=== PATIENT | female | born 1945 | race Caucasian/White ===

== ENCOUNTER 2018-08-22 10:51 | Inpatient (IN) | payer OTHER, BC ==
[2018-08-22] MEDS ORDERED: SODIUM CHLORIDE 0.9% 500 ML INFUS.BAG IV ONE (11:10)
--- NOTE | 2018-08-22 11:33 | PDOC ---
History of Present Illness - General Chief Complaint: Pain Stated Complaint: ABD PAIN Time Seen by Provider: 08/22/18 11:02 History Source: Patient, Family Exam Limitations: No Limitations - History of Present Illness Initial Comments: 08/22/18 11:23 CHIEF COMPLAINT: Lower abdominal pain since HISTORY OF PRESENT ILLNESS: 73-year-old female with a history of hypertension, colon resection for diverticulitis, incisional hernia repair in the left lower quadrant of the abdomen, and cholecystectomy. Patient was feeling well until , 3 days ago, when she noted some diffuse abdominal bloating and discomfort with diffuse abdominal tenderness to the touch. She has nausea but no vomiting. She denies fever. She does complain of chills. She has chronic diarrhea, and her bowel movements are unchanged from baseline. She had a bowel movement yesterday which was initially formed and then a little bit loose, which is normal for her. There was no blood in the stool at that time. On she did notice small spot of blood on the toilet tissue, but no blood in the stool. Today she continues to have a sensation of lower abdominal bloating, and left lower quadrant greater than right lower quadrant abdominal discomfort. The pain also radiates from the bilateral back to the lower abdomen. REVIEW OF SYSTEMS: GENERAL/CONSTITUTIONAL: No fever, but positive chills. No weakness. No weight change. HEAD, EYES, EARS, NOSE AND THROAT: No change in vision. No ear pain or discharge. No sore throat. CARDIOVASCULAR: No chest pain or shortness of breath. RESPIRATORY: No cough, wheezing, or hemoptysis. GASTROINTESTINAL: Positive nausea but no vomiting. Positive chronic diarrhea without change. Positive spot of blood on the toilet tissue on , but no bleeding since then. Positive lower abdominal bloating sensation with nausea but no vomiting. No change in chronic diarrhea. GENITOURINARY: No dysuria, frequency, or change in urination. MUSCULOSKELETAL: No joint or muscle swelling or pain. No neck or back pain. SKIN AND BREASTS: No rash or easy bruising. NEUROLOGIC: No headache, vertigo, loss of consciousness, or loss of sensation. PSYCHIATRIC: No depression or anxiety. ENDOCRINE: No increased thirst. No abnormal weight change. HEMATOLOGIC/LYMPHATIC: No anemia, easy bleeding, or history of blood clots. ALLERGIC/IMMUNOLOGIC: No hives or skin allergy. No latex allergy. Past History - Past Medical History Allergies/Adverse Reactions: Allergies Allergy/AdvReac Type Severity Reaction Status Date / Time No Known Allergies Allergy Verified 08/22/18 10:52 Home Medications: Ambulatory Orders Aspirin [Aspir 81] 81 mg PO DAILY 06/13/13 Loperamide HCl/Simethicone [Imodium Multi-Symptom Rel Cplt] 1 each PO ASDIR tablet 10/29/16 Bismuth Subsalicylate [Pepto-Bismol -] 262 mg PO ASDIR 08/22/18 Hydrochlorothiazide [Hctz -] 25 mg PO DAILY 08/22/18 Levothyroxine [Synthroid -] 125 mcg PO DAILY 08/22/18 Metoprolol Succinate 25 mg PO DAILY 08/22/18 Quinapril HCl 20 mg PO DAILY 08/22/18 COPD: No HTN: Yes Liver Disease: Yes (NON ALCOHOLIC FATTY) Thyroid Disease: Yes (HYPO) - Surgical History Abdominal Surgery: Yes (COLON RESSECTION,HERNIA WITH MESH) Cholecystectomy: Yes - Suicide/Smoking/Psychosocial Hx Smoking History: Never smoked Have you smoked in the past 12 months: No Information on smoking cessation initiated: No Hx Alcohol Use: No Drug/Substance Use Hx: No *Physical Exam - Vital Signs Last Vital Signs Temp Pulse Resp BP Pulse Ox 98.2 F 84 20 174/81 H 97 08/22/18 10:52 08/22/18 10:52 08/22/18 10:52 08/22/18 10:52 08/22/18 10:52 - Physical Exam Comments: 08/22/18 11:27 GENERAL: The patient is awake, alert, and fully oriented, in no acute distress. HEAD: Normal with no signs of trauma. EYES: Pupils equal, round and reactive to light, extraocular movements intact, sclera anicteric, conjunctiva clear. ENT: Ears normal, nares patent, oropharynx clear without exudates. Moist mucous membranes. NECK: Normal range of motion, supple without lymphadenopathy, JVD, or masses. LUNGS: Breath sounds equal, clear to auscultation bilaterally. No wheezes, and no crackles. HEART: Regular rate and rhythm, normal S1 and S2 without murmur, rub or gallop. ABDOMEN: Soft without distention. Normal bowel sounds. There is lower abdominal tenderness, left lower quadrant greater than right lower quadrant. There is no guarding or rebound tenderness. EXTREMITIES: Normal range of motion, no edema. No clubbing or cyanosis. No cords, erythema, or tenderness. NEUROLOGICAL: Cranial nerves II through XII grossly intact. Normal speech, normal gait. PSYCH: Normal mood, normal affect. SKIN: Warm, Dry, normal turgor, no rashes or lesions noted. Moderate Sedation - Procedure Monitoring Vital Signs: Procedure Monitoring Vital Signs Temperature 98.2 F 08/22/18 10:52 Pulse Rate 84 08/22/18 10:52 Respiratory Rate 20 08/22/18 10:52 Blood Pressure 174/81 H 08/22/18 10:52 O2 Sat by Pulse Oximetry (%) 97 08/22/18 10:52 ED Treatment Course - LABORATORY CBC & Chemistry Diagram: 08/22/18 11:27 08/22/18 11:27 - RADIOLOGY Radiology Studies Ordered: Category Date Time Status ABDOMEN & PELVIS CT WITH CONTR [CT] Stat CT Scan 08/22/18 11:15 Ordered Medical Decision Making - Medical Decision Making 08/22/18 15:20 73-year-old female presents with lower abdominal distention and pain. On examination, she has some lower abdominal tenderness left greater than right. There is no guarding or rebound. White blood cell count is normal, however, the patient says she typically runs with a low white blood cell count. Neutrophils are 82%. CT scan of the abdomen and pelvis shows extensive inflammatory changes around the descending colon. There is also a question of microperforation. Impression: Diverticulitis/colitis. Imaging with marked inflammatory changes, although the WBC and temp are unimpressive. Patient will be admitted for IV Levaquin and Flagyl. Dr. Brooks will admit the patient and consult with surgery to follow the course on antibiotics. Dr. Torres, general surgery will be contacted by Dr. Brooks. First dose of flagyl and levaquin ordered by me in the ED. Laboratory Results - last 24 hr 08/22/18 08/22/18 08/22/18 11:27 11:27 12:00 WBC 7.6 RBC 4.12 Hgb 13.1 Hct 39.4 MCV 95.6 MCH 31.8 MCHC 33.3 RDW 12.7 Plt Count 147 MPV 8.5 Absolute Neuts (auto) 6.1 Neutrophils % 80.6 Lymphocytes % 10.7 Monocytes % 7.6 Eosinophils % 0.7 Basophils % 0.4 Sodium 137 Potassium 3.8 Chloride 103 Carbon Dioxide 26 Anion Gap 8 BUN 12 Creatinine 0.8 Creat Clearance w eGFR > 60 Random Glucose 113 H Calcium 8.8 Total Bilirubin 1.2 H AST 17 D ALT 16 D Alkaline Phosphatase 87 Total Protein 6.4 Albumin 3.8 Urine Color Yellow Urine Appearance Clear Urine pH 6.0 Ur Specific [place] 1.010 Urine Protein Negative Urine Glucose (UA) Negative Urine Ketones Negative Urine Blood 1+ H Urine Nitrite Negative Urine Bilirubin Negative Urine Urobilinogen 0.2 Ur Leukocyte Esterase Trace H Urine RBC 2-5 Urine WBC 2-5 Ur Epithelial Cells Few Amorphous Urates None seen Urine Bacteria None seen *DC/Admit/Observation/Transfer Diagnosis at time of Disposition: Diverticulitis - Discharge Dispostion Condition at time of disposition: Stable Decision to Admit order: Yes Decision to Admit order Date/Time: 08/22/18 15:[address] Brooks - Referrals Referrals: Mathieu England MD [Primary Care Provider] - - Patient Instructions - Post Discharge Activity
[2018-08-22 12:12] LABS: ALBUMIN 3.8 g/dl (3.5-5.0); ALK PHOS 87 U/L (32-92); ANION GAP 8 MMOL/L (8-16); BILIRUBIN,TOTAL 1.2 mg/dl (0.2-1.0); BLOOD UREA NITROGEN 12 mg/dl (7-18); CALCIUM 8.8 mg/dl (8.4-10.2); CHLORIDE 103 mmol/L (98-107); CO2 26 mmol/L (22-28); CREATININE 0.8 mg/dl (0.6-1.3); GLUCOSE,RANDOM 113 mg/dl (74-106); POTASSIUM 3.8 mmol/L (3.5-5.1); SGOT/AST 17 U/L (10-42); SGPT/ALT 16 U/L (10-40); SODIUM 137 mmol/L (136-145); TOT PROT 6.4 g/dl (6.4-8.3)
[2018-08-22 12:19] LABS: BASO % 0.4 % (0-2.0); EOS % 0.7 % (0-4.5); HEMATOCRIT 39.4 % (32.4-45.2); HEMOGLOBIN 13.1 GM/dl (10.7-15.3); LYMPH % 10.7 % (8-40); MCH 31.8 pg (25.7-33.7); MCHC 33.3 g/dl (32.0-36.0); MEAN CELL VOLUME 95.6 fl (80-96); MEAN PLT VOLUME 8.5 fl (7.5-11.1); MONO % 7.6 % (3.8-10.2); NEUT % 80.6 % (42.8-82.8); PLATELET COUNT 147 K/MM3 (134-434); RBC 4.12 M/mm3 (3.60-5.2); RDW 12.7 % (11.6-15.6); WHITE BLOOD COUNT 7.6 K/mm3 (4.0-10.8)
[2018-08-22 12:27] LABS: URINE APPEARANCE Clear; URINE BILIRUBIN Negative (NEGATIVE); URINE COLOR Yellow; URINE GLUCOSE (UA) Negative (NEGATIVE); URINE KETONE Negative (NEGATIVE); URINE LEUK ESTERASE TRACE (NEGATIVE); URINE NITRITE Negative (NEGATIVE); URINE PROTEIN Negative (NEGATIVE); URINE UROBILINOGEN 0.2 (0.2-1.0)
[2018-08-22 12:41] LABS: AMORP URATES NONE SEEN /hpf (NONE SEEN); EPI CELLS FEW /HPF; URINE BACTERIA NONE SEEN /hpf (NEGATIVE)
[2018-08-22] MEDS ORDERED: ACETAMINOPHEN 1000 MG/100 ML VIAL (NON FORMULARY) IVPB ONE (12:51)
[2018-08-22] MEDS ORDERED: ACETAMINOPHEN INJECTION 100 ML IVPB ONE (12:51)
[2018-08-22] MEDS ORDERED: METOPROLOL TARTRATE 5 MG/5 ML VIAL IVPB PRN (15:38)
[2018-08-22] MEDS ORDERED: SODIUM CHLORIDE 1,000 ML IV SCH (16:30)
[2018-08-22 16:55] VITALS: BMI 33.3
[2018-08-22] MEDS: ENALAPRILAT DIHYDRATE 1.25 MG/1 ML VIAL IVPB SCH (17:15)
[2018-08-22] MEDS ORDERED: ONDANSETRON 4 MG/2 ML VIAL IVPB ONE (18:45)
--- NOTE | 2018-08-22 23:06 | HP ---
CHIEF COMPLAINT: Abdominal Pain, Nausea, Diarrhea PCP: Dr. England HISTORY OF PRESENT ILLNESS: This is a 73 y/o woman with a past medical history of Diverticulitis, s/p Colon Resection (2003), HTN, Hypothyroidism, Non Alcoholic Fatty Liver Disease. Who presents to the ED with left lower quadrant pain, chills, nausea x 3 days with chronic diarrhea. Patient describes the pain as a feeling of bloating with tenderness. Patient reports having one episode of non-bloody, bilious emesis in the ED, as well as one during my interview/exam. Patient denies fever, cough, dizziness, SOB, CP, constipation, hematochezia, melena, hematuria, dysuria. ER course was notable for: (1) CTAP- extensive inflammatory changes around descending colon, ? microperforation (2) T Bili 1.2 (3) T Max 100.6 Recent Travel: None PAST MEDICAL HISTORY: See HPI PAST SURGICAL HISTORY: Colon Resection (2003) Cholecystectomy Hernia Repair w/ Mesh Social History: Smoking: Never Alcohol: None Drugs: None Lives with spouse Family History: Mother: Diverticulitis Allergies No Known Allergies Allergy (Verified 08/22/18 10:52) HOME MEDICATIONS: Home Medications Medication Instructions Recorded Aspirin [Aspir 81] 81 mg PO DAILY 06/13/13 Loperamide HCl/Simethicone 1 each PO ASDIR tablet 10/29/16 [Imodium Multi-Symptom Rel Cplt] Bismuth Subsalicylate 262 mg PO ASDIR 08/22/18 [Pepto-Bismol -] Hydrochlorothiazide [Hctz -] 25 mg PO DAILY 08/22/18 Levothyroxine [Synthroid -] 125 mcg PO DAILY 08/22/18 Metoprolol Succinate 25 mg PO DAILY 08/22/18 Quinapril HCl 20 mg PO DAILY 08/22/18 REVIEW OF SYSTEMS CONSTITUTIONAL: chills, Absent: fever, diaphoresis, generalized weakness, malaise, loss of appetite, weight change HEENT: Absent: rhinorrhea, nasal congestion, throat pain, throat swelling, difficulty swallowing, mouth swelling, ear pain, eye pain, visual changes CARDIOVASCULAR: Absent: chest pain, syncope, palpitations, irregular heart rate, lightheadedness , peripheral edema RESPIRATORY: Absent: cough, shortness of breath, dyspnea with exertion, orthopnea, wheezing, stridor, hemoptysis GASTROINTESTINAL:abdominal pain, nausea, vomiting, diarrhea, Absent: abdominal pain, abdominal distension, nausea, vomiting, diarrhea, constipation, melena, hematochezia GENITOURINARY: Absent: dysuria, frequency, urgency, hesitancy, hematuria, flank pain, genital pain MUSCULOSKELETAL: Absent: myalgia, arthralgia, joint swelling, back pain, neck pain SKIN: Absent: rash, itching, pallor HEMATOLOGIC/IMMUNOLOGIC: Absent: easy bleeding, easy bruising, lymphadenopathy, frequent infections ENDOCRINE: Absent: unexplained weight gain, unexplained weight loss, heat intolerance, cold intolerance NEUROLOGIC: Absent: headache, focal weakness or paresthesias, dizziness, unsteady gait, seizure, mental status changes, bladder or bowel incontinence PSYCHIATRIC: Absent: anxiety, depression, suicidal or homicidal ideation, hallucinations. PHYSICAL EXAMINATION Vital Signs - 24 hr 08/22/18 08/22/18 08/22/18 10:52 15:24 16:18 Temperature 98.2 F 98.2 F 100.4 F H Pulse Rate 84 88 Pulse Rate [ 90 Right] Respiratory 20 20 20 Rate Blood Pressure 174/81 H 188/78 H Blood Pressure 154/72 [Left Arm] O2 Sat by Pulse 97 97 97 Oximetry (%) 08/22/18 08/22/18 20:20 21:00 Temperature 98.6 F Pulse Rate 87 Pulse Rate [ Right] Respiratory 18 Rate Blood Pressure 156/72 Blood Pressure [Left Arm] O2 Sat by Pulse 98 Oximetry (%) GENERAL: Awake, alert, and fully oriented, in mild distress. HEAD: Normal with no signs of trauma. EYES: Pupils equal, round and reactive to light, extraocular movements intact, sclera anicteric, conjunctiva clear. No lid lag. EARS, NOSE, THROAT: Ears normal, nares patent, oropharynx clear without exudates. Dry mucous membranes. NECK: Normal range of motion, supple without lymphadenopathy, JVD, or masses. LUNGS: Breath sounds equal, clear to auscultation bilaterally. No wheezes, and no crackles. No accessory muscle use. HEART: Regular rate and rhythm, normal S1 and S2 without murmur, rub or gallop. ABDOMEN: Obese, soft, LLQ tenderness, not distended, hypoactive bowel sounds, no guarding, no rebound, no masses. No hepatomegaly or splenomegaly. MUSCULOSKELETAL: Normal range of motion at all joints. No bony deformities or tenderness. No CVA tenderness. UPPER EXTREMITIES: 2+ pulses, warm, well-perfused. No cyanosis. No clubbing. No peripheral edema. LOWER EXTREMITIES: 2+ pulses, warm, well-perfused. No calf tenderness. No peripheral edema. NEUROLOGICAL: Cranial nerves II-XII intact. Normal speech. Gait not observed. PSYCHIATRIC: Cooperative. Good eye contact. Appropriate mood and affect. SKIN: Warm, dry, normal turgor, no rashes or lesions noted, normal capillary refill. Laboratory Results - last 24 hr 08/22/18 08/22/18 08/22/18 11:27 11:27 12:00 WBC 7.6 RBC 4.12 Hgb 13.1 Hct 39.4 MCV 95.6 MCH 31.8 MCHC 33.3 RDW 12.7 Plt Count 147 MPV 8.5 Absolute Neuts (auto) 6.1 Neutrophils % 80.6 Lymphocytes % 10.7 Monocytes % 7.6 Eosinophils % 0.7 Basophils % 0.4 Sodium 137 Potassium 3.8 Chloride 103 Carbon Dioxide 26 Anion Gap 8 BUN 12 Creatinine 0.8 Creat Clearance w eGFR > 60 Random Glucose 113 H Calcium 8.8 Total Bilirubin 1.2 H AST 17 D ALT 16 D Alkaline Phosphatase 87 Total Protein 6.4 Albumin 3.8 Urine Color Yellow Urine Appearance Clear Urine pH 6.0 Ur Specific [place] 1.010 Urine Protein Negative Urine Glucose (UA) Negative Urine Ketones Negative Urine Blood 1+ H Urine Nitrite Negative Urine Bilirubin Negative Urine Urobilinogen 0.2 Ur Leukocyte Esterase Trace H Urine RBC 2-5 Urine WBC 2-5 Ur Epithelial Cells Few Amorphous Urates None seen Urine Bacteria None seen ASSESSMENT/PLAN: This is a 73 y/o woman admitted for Acute Diverticulitis for further evaluation of their emergent condition. Plan: FEN D51/2NS@75ml/hr Replete lytes prn NPO DVT ppx OOB SCDs Heparin SQ Code Status: Full Code Dispo: Requires Inpatient Care Problem List - Problem (1) Diverticulitis Assessment/Plan: CTAP- extensive inflammatory changes around descending colon. ?microperforation No leukocytosis, T max 100.4 Started on Flagyl and Levofloxacin, will continue Appreciate Surgical consult IVF NPO Monitor CBC, BMP Monitor vitals Code(s): K57.92 - DVTRCLI OF INTEST, PART UNSP, W/O PERF OR ABSCESS W/O BLEED (2) Abdominal pain Assessment/Plan: See above Code(s): R10.9 - UNSPECIFIED ABDOMINAL PAIN (3) Nausea and vomiting Assessment/Plan: Zofran prn Continue IVF Monitor BMP Code(s): R11.2 - NAUSEA WITH VOMITING, UNSPECIFIED (4) HTN (hypertension) Assessment/Plan: suboptimal Monitor BP Metoprolol IV for now while NPO Monitor renal function Code(s): I10 - ESSENTIAL (PRIMARY) HYPERTENSION (5) Hypothyroidism Assessment/Plan: Continue Levothyroxine IV Code(s): E03.9 - HYPOTHYROIDISM, UNSPECIFIED (6) Non-alcoholic fatty liver disease Assessment/Plan: T- Bili 1.2, at baseline Continue to monitor and treat with interventions accordingly Code(s): K76.0 - FATTY (CHANGE OF) LIVER, NOT ELSEWHERE CLASSIFIED Visit type - Emergency Visit Emergency Visit: Yes ED Registration Date: 08/22/18 Care time: The patient presented to the Emergency Department on the above date and was hospitalized for further evaluation of their emergent condition. - New Patient This patient is new to me today: Yes Date on this admission: 08/22/18 - Critical Care Critical Care patient: No
[2018-08-23] MEDS ORDERED: ONDANSETRON 4 MG/2 ML VIAL IVPUSH PRN (00:43)
[2018-08-23] MEDS ORDERED: ACETAMINOPHEN 1000 MG/100 ML VIAL (NON FORMULARY) IVPB ONE (00:45)
[2018-08-23] MEDS ORDERED: FAMOTIDINE 20 MG/50 ML IVPB 20 MG/50 ML MG IVPB ONE (01:14)
[2018-08-23] MEDS: ENALAPRILAT DIHYDRATE 1.25 MG/1 ML VIAL IVPB SCH ×4 (01:17→20:53)
[2018-08-23] MEDS: HEPARIN NA (PORCINE) 5,000 UNITS/ML 1ML VIAL SQ SCH ×2 (06:33→15:16)
[2018-08-23] MEDS ORDERED: DEXTROSE 5%-0.45% SALINE 1,000 ML IV SCH (07:30)
[2018-08-23 08:24] LABS: BASO % 0.2 % (0-2.0); EOS % 0.1 % (0-4.5); HEMOGLOBIN 12.6 GM/dl (10.7-15.3); LYMPH % 8.7 % (8-40); MCH 32.6 pg (25.7-33.7); MCHC 34.1 g/dl (32.0-36.0); MEAN CELL VOLUME 95.6 fl (80-96); MEAN PLT VOLUME 8.9 fl (7.5-11.1); MONO % 5.5 % (3.8-10.2); NEUT % 85.5 % (42.8-82.8); PLATELET COUNT 120 K/MM3 (134-434); RBC 3.87 M/mm3 (3.60-5.2); RDW 12.9 % (11.6-15.6); WHITE BLOOD COUNT 7.4 K/mm3 (4.0-10.8)
[2018-08-23 08:44] LABS: ALBUMIN 3.5 g/dl (3.5-5.0); ALK PHOS 84 U/L (32-92); ANION GAP 8 MMOL/L (8-16); BILIRUBIN,TOTAL 1.5 mg/dl (0.2-1.0); BLOOD UREA NITROGEN 9 mg/dl (7-18); CALCIUM 8.7 mg/dl (8.4-10.2); CHLORIDE 104 mmol/L (98-107); CO2 26 mmol/L (22-28); CREATININE 0.7 mg/dl (0.6-1.3); GLUCOSE,RANDOM 109 mg/dl (74-106); PHOSPHOROUS 3.3 mg/dl (2.5-4.6); POTASSIUM 3.9 mmol/L (3.5-5.1); SGOT/AST 14 U/L (10-42); SGPT/ALT 14 U/L (10-40); SODIUM 138 mmol/L (136-145); TOT PROT 6.4 g/dl (6.4-8.3)
[2018-08-23 09:44] LABS: INR 1.37 (0.82-1.09); PROTHROMBIN TIME (PATIENT) 15.2 SEC (10.2-13.0)
[2018-08-23] MEDS: PANTOPRAZOLE SODIUM 40 MG VIAL IVPUSH SCH (10:15)
[2018-08-23] MEDS ORDERED: PT OWN MED DRAWER 7, Y5N ONE ×3 (10:16→17:05)
--- NOTE | 2018-08-23 10:26 | PN ---
Physical Exam: SUBJECTIVE: Patient seen and examined OBJECTIVE: Vital Signs Period Temp Pulse Resp BP Sys/Trivedi Pulse Ox Last 24 Hr 98.1 F-100.4 F 72-90 18-20 154-188/71-81 97-99 GENERAL: The patient is awake, alert, and fully oriented, in no acute distress. LUNGS: CTA HEART: Regular rate and rhythm, S1, S2 ABDOMEN: Soft, mild LLQ tenderness, normoactive bowel sounds, no guarding, no rebound tenderness EXTREMITIES: 2+ pulses, warm, well-perfused, no edema. NEUROLOGICAL: Cranial nerves II through XII grossly intact. Normal speech, gait not observed. SKIN: Warm, dry, normal turgor Laboratory Results - last 24 hr 08/22/18 08/22/18 08/22/18 11:27 11:27 12:00 WBC 7.6 RBC 4.12 Hgb 13.1 Hct 39.4 MCV 95.6 MCH 31.8 MCHC 33.3 RDW 12.7 Plt Count 147 MPV 8.5 Absolute Neuts (auto) 6.1 Neutrophils % 80.6 Lymphocytes % 10.7 Monocytes % 7.6 Eosinophils % 0.7 Basophils % 0.4 PT with INR INR Sodium 137 Potassium 3.8 Chloride 103 Carbon Dioxide 26 Anion Gap 8 BUN 12 Creatinine 0.8 Creat Clearance w eGFR > 60 Random Glucose 113 H Calcium 8.8 Phosphorus Magnesium Total Bilirubin 1.2 H AST 17 D ALT 16 D Alkaline Phosphatase 87 Total Protein 6.4 Albumin 3.8 Urine Color Yellow Urine Appearance Clear Urine pH 6.0 Ur Specific [place] 1.010 Urine Protein Negative Urine Glucose (UA) Negative Urine Ketones Negative Urine Blood 1+ H Urine Nitrite Negative Urine Bilirubin Negative Urine Urobilinogen 0.2 Ur Leukocyte Esterase Trace H Urine RBC 2-5 Urine WBC 2-5 Ur Epithelial Cells Few Amorphous Urates None seen Urine Bacteria None seen 08/23/18 08/23/18 08/23/18 07:18 07:18 07:18 WBC 7.4 RBC 3.87 Hgb 12.6 Hct 37.0 MCV 95.6 MCH 32.6 MCHC 34.1 RDW 12.9 Plt Count 120 L MPV 8.9 Absolute Neuts (auto) 6.4 Neutrophils % 85.5 H Lymphocytes % 8.7 Monocytes % 5.5 Eosinophils % 0.1 Basophils % 0.2 PT with INR 15.2 H INR 1.37 H Sodium 138 Potassium 3.9 Chloride 104 Carbon Dioxide 26 Anion Gap 8 BUN 9 Creatinine 0.7 Creat Clearance w eGFR > 60 Random Glucose 109 H Calcium 8.7 Phosphorus 3.3 Magnesium 2.0 Total Bilirubin 1.5 H AST 14 ALT 14 Alkaline Phosphatase 84 Total Protein 6.4 Albumin 3.5 Urine Color Urine Appearance Urine pH Ur Specific [place] Urine Protein Urine Glucose (UA) Urine Ketones Urine Blood Urine Nitrite Urine Bilirubin Urine Urobilinogen Ur Leukocyte Esterase Urine RBC Urine WBC Ur Epithelial Cells Amorphous Urates Urine Bacteria Active Medications Generic Name Dose Route Start Last Admin Trade Name Freq PRN Reason Stop Dose Admin Enalaprilat 0.625 mg 08/22/18 16:30 08/23/18 01:17 Vasotec Injection - IVPB 0.625 mg Q8H-IV ASHOK Administration Heparin Sodium (Porcine) 5,000 unit 08/23/18 06:00 08/23/18 06:33 Heparin - SQ 5,000 unit TID ASHOK Administration Metronidazole 500 mg in 100 mls @ 100 mls/hr 08/22/18 18:00 08/23/18 01:19 Flagyl 500mg Premixed Ivpb - IVPB 100 mls/hr Q8H-IV ASHOK Administration Dextrose/Sodium Chloride 1,000 mls @ 75 mls/hr 08/23/18 07:30 D5-1/2ns - IV ASDIR ASHOK Levothyroxine Sodium 62.5 mcg 08/23/18 10:00 Synthroid Injection - IVPUSH DAILY ASHOK Metoprolol Tartrate 5 mg 08/22/18 15:38 Lopressor Injection - IVPB Q4H PRN HYPERTENSION Ondansetron HCl 4 mg 08/23/18 00:43 Zofran Injection IVPUSH Q6H PRN NAUSEA AND/OR VOMITING Pantoprazole Sodium 40 mg 08/23/18 10:15 Protonix Iv IVPUSH DAILY ASHOK ASSESSMENT/PLAN 73-year-old female with a PMH significant for HTN, hypothyroidism, and chronic diarrhea. Multiple surgeries: colon resection for diverticulitis (2003), LLQ incisional hernia repair, midline ventral hernia repair, cholecystectomy. Acute Diverticulitis --this is first bout of diverticulitis since colon resection in 2003; patient was followed until 2013 at [facility], last colonoscopy 2014 reportedly unremarkable --08/22 CTAP: extensive inflammatory changes with mural thickening of entire remaining left colon with +microperforation; no discrete drainable abscess --low grade temp 100.4 on admission, presently afebrile, no leukocytosis --continue levofloxacin (day #2) and metronidazole (day #1) --surgery consult pending --blood cultures ordered Hypertension --continue Enalaprit --continue lopressor PRN Hypothyroidism --continue levothyroxine IVP Chronic diarrhea --has not had BM since arrival to ED --+bowel sounds, +flatus FEN Fluids: D51/2@100/hr Electrolytes: replete as indicated Nutrition: NPO DVT prophylaxis: hold chemical prophylaxis for possible surgical intervention; SCDs, oob, ambulation Dispo: continues to require inpatient care. Visit type - Emergency Visit Emergency Visit: Yes ED Registration Date: 08/22/18 Care time: The patient presented to the Emergency Department on the above date and was hospitalized for further evaluation of their emergent condition. - New Patient This patient is new to me today: Yes Date on this admission: 08/23/18 - Critical Care Critical Care patient: No
[2018-08-23] MEDS: LEVOTHYROXINE SODIUM 100 MCG VIAL IVPUSH SCH (11:24)
[2018-08-23] MEDS: DEXTROSE 5%-0.45% SALINE 1,000 ML IV SCH (15:15)
--- NOTE | 2018-08-23 16:21 | CONSULT ---
- Consultation REQUESTING PROVIDER: Rochelle BO CONSULT REQUEST: We have been asked to surgically evaluate this patient for LLQ abdominal pain PCP:Elke Gallagher HISTORY OF PRESENT ILLNESS: CTSP for e/m of LLQ abdominal pain of # days duration and increasing intensity; pain sharp in LLQ w/o radiation and/or nause and/or vomiting; NOC. 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 She is onbly c/o nausea now which she did not have on admission. PMHx: sigmoid colon resection/incisional hernia repair x2; cholecystectomy PSHx: Home Medications Medication Instructions Recorded Aspirin [Aspir 81] 81 mg PO DAILY 06/13/13 Loperamide HCl/Simethicone 1 each PO ASDIR tablet 10/29/16 [Imodium Multi-Symptom Rel Cplt] Bismuth Subsalicylate 262 mg PO ASDIR 08/22/18 [Pepto-Bismol -] Hydrochlorothiazide [Hctz -] 25 mg PO DAILY 08/22/18 Levothyroxine [Synthroid -] 125 mcg PO DAILY 08/22/18 Metoprolol Succinate 25 mg PO DAILY 08/22/18 Quinapril HCl 20 mg PO DAILY 08/22/18 Allergies Allergy/AdvReac Type Severity Reaction Status Date / Time No Known Allergies Allergy Verified 08/22/18 10:52 REVIEW OF SYSTEMS: CONSTITUTIONAL: Absent: fever, chills, diaphoresis, generalized weakness, malaise, loss of appetite, weight change CARDIOVASCULAR: Absent: chest pain, syncope, palpitations, irregular heart rate, lightheadedness , peripheral edema RESPIRATORY: Absent: cough, shortness of breath, dyspnea with exertion, wheezing, stridor, hemoptysis GASTROINTESTINAL: Presnt: abdominal pain, abdominal distension, diarrhea, GENITOURINARY: Absent: dysuria, frequency, urgency, hesitancy, hematuria, flank pain, genital pain MUSCULOSKELETAL: Absent: myalgia, arthralgia, joint swelling, back pain, neck pain SKIN: Absent: rash, itching, pallor HEMATOLOGIC/IMMUNOLOGIC: Absent: easy bleeding, easy bruising, lymphadenopathy NEUROLOGIC: Absent: headache, focal weakness, paresthesias, dizziness, unsteady gait, seizure, mental status changes, bladder or bowel incontinence PSYCHIATRIC: Absent: anxiety, depression, suicidal or homicidal ideation, hallucinations. PHYSICAL EXAM: GENERAL: Awake, alert, and fully oriented, in no acute distress. HEAD: Normal with no signs of trauma. EYES: PERRL, sclera anicteric, conjunctiva clear. NECK: Normal ROM, supple without lymphadenopathy, JVD, or masses. ABDOMEN: Soft, nontender, not distended, normoactive bowel sounds, no guarding, no rebound, no masses. No organomegaly. No hernias; healed surgical scars. MUSCULOSKELETAL: Normal ROM at all joints. No bony deformities or tenderness. No CVA tenderness. UPPER EXTREMITIES: 2+ pulses, warm, well-perfused. No cyanosis. Cap refill <2 seconds. No peripheral edema. LOWER EXTREMITIES: 2+ pulses, warm, well-perfused. No calf tenderness. No peripheral edema. NEUROLOGICAL: Normal speech, gait not observed. PSYCH: Cooperative. Good eye contact. Appropriate mood and affect. SKIN: Warm, dry, normal turgor, no rashes or lesions noted. Vital Signs Temperature 98.1 F 08/23/18 14:20 Pulse Rate 69 08/23/18 14:20 Respiratory Rate 16 08/23/18 14:20 Blood Pressure 156/51 L 08/23/18 14:20 O2 Sat by Pulse Oximetry (%) 98 08/23/18 14:20 Lab Results WBC 7.4 K/mm3 (4.0-10.8) 08/23/18 07:18 RBC 3.87 M/mm3 (3.60-5.2) 08/23/18 07:18 Hgb 12.6 GM/dl (10.7-15.3) 08/23/18 07:18 Hct 37.0 % (32.4-45.2) 08/23/18 07:18 MCV 95.6 fl (80-96) 08/23/18 07:18 MCHC 34.1 g/dl (32.0-36.0) 08/23/18 07:18 RDW 12.9 % (11.6-15.6) 08/23/18 07:18 Plt Count 120 K/MM3 (134-434) L 08/23/18 07:18 Sodium 138 mmol/L (136-145) 08/23/18 07:18 Potassium 3.9 mmol/L (3.5-5.1) 08/23/18 07:18 Chloride 104 mmol/L (98-107) 08/23/18 07:18 Carbon Dioxide 26 mmol/L (22-28) 08/23/18 07:18 Anion Gap 8 MMOL/L (8-16) 08/23/18 07:18 BUN 9 mg/dl (7-18) 08/23/18 07:18 Creatinine 0.7 mg/dl (0.6-1.3) 08/23/18 07:18 Random Glucose 109 mg/dl (74-106) H 08/23/18 07:18 Calcium 8.7 mg/dl (8.4-10.2) 08/23/18 07:18 INR 1.37 (0.82-1.09) H 08/23/18 07:18 CT a/p images and reports reviewed IMP: diverticulitis of the remaining left colon w/? microperforation w/o evidence of an acute surgical abdomen PLAN: NPO/IVF/IVABS; serial exams; serial CBC's and temp's; will need repeat imaging; will f/u. Jasper Torres MD FACS
[2018-08-23] MEDS: METOPROLOL TARTRATE 5 MG/5 ML VIAL IVPB SCH ×2 (17:10→20:53)
[2018-08-24] MEDS: ENALAPRILAT DIHYDRATE 1.25 MG/1 ML VIAL IVPB SCH ×3 (02:14→18:30)
[2018-08-24] MEDS ORDERED: PT OWN MED DRAWER 7, Y5N ONE ×3 (02:21→19:29)
[2018-08-24] MEDS ORDERED: ONDANSETRON 4 MG/2 ML VIAL IVPB PRN (03:19)
[2018-08-24] MEDS: METOPROLOL TARTRATE 5 MG/5 ML VIAL IVPB SCH ×4 (03:48→21:20)
[2018-08-24] MEDS: PANTOPRAZOLE SODIUM 40 MG VIAL IVPUSH SCH (10:31)
[2018-08-24] MEDS: LEVOTHYROXINE SODIUM 100 MCG VIAL IVPUSH SCH (10:32)
[2018-08-24] MEDS ORDERED: ACETAMINOPHEN 325 MG TABLET (FP) PO PRN (13:46)
--- NOTE | 2018-08-24 14:03 | PN ---
Progress Note (short form) - Note Progress Note: Attending Surgeon Predominant c/o is nausea; had BM and is passing flatus VSS AF abdo-soft; flat and non tender; no guarding and/or rebound; o/w negative. IMP;stable PLAN: Continue present tx.; nausea ? due to antibiotics; will need f/u imaging; surgery remains a possibility as d/w the patient. Jasper Torres MD FACS
[2018-08-24] MEDS: DEXTROSE 5%-0.45% SALINE 1,000 ML IV SCH (15:26)
--- NOTE | 2018-08-24 18:05 | PN ---
Physical Exam: SUBJECTIVE: Patient seen and examined. Reports abdominal pain improved. C/o nausea persistent despite zofran. Unable to sleep due to nausea. OBJECTIVE: Vital Signs 3 Period Temp Pulse Resp BP Sys/Trivedi Pulse Ox Last 24 Hr 98.0 F-98.6 F 51-72 16-20 155-190/59-68 98-100 GENERAL: The patient is awake, alert, and fully oriented, in no acute distress. HEAD: Normal with no signs of trauma. EYES: PERRL, extraocular movements intact, sclera anicteric, conjunctiva clear. No ptosis. ENT: Ears normal, nares patent, oropharynx clear without exudates, moist mucous membranes. NECK: Trachea midline, full range of motion, supple. LUNGS: Breath sounds equal, clear to auscultation bilaterally, no wheezes, no crackles, no accessory muscle use. HEART: Regular rate and rhythm, S1, S2 without murmur, rub or gallop. ABDOMEN: Soft, nontender, nondistended, normoactive bowel sounds, no guarding, no rebound, no hepatosplenomegaly, no masses. EXTREMITIES: 2+ pulses, warm, well-perfused, no edema. NEUROLOGICAL: Cranial nerves II through XII grossly intact. Normal speech, gait not observed. PSYCH: Normal mood, normal affect. SKIN: Warm, dry, normal turgor, no rashes or lesions noted Active Medications 3 Generic Name Dose Route Start Last Admin Trade Name Freq PRN Reason Stop Dose Admin Acetaminophen 650 mg 08/24/18 13:46 08/24/18 14:36 Tylenol - PO 650 mg Q4H PRN Administration PAIN Enalaprilat 1.25 mg 08/24/18 17:18 Vasotec Injection - IVPB Q8H-IV ASHOK Metronidazole 250 mg in 50 mls @ 50 mls/hr 08/23/18 15:00 08/24/18 10:31 Flagyl 250mg Premixed Ivpb - IVPB 50 mls/hr Q8H-IV ASHOK Administration Levofloxacin 750 mg in 150 mls @ 150 mls/hr 08/23/18 15:00 08/24/18 10:31 Levaquin 750 Mg Premixed Ivpb - IVPB 150 mls/hr DAILY ASHOK Administration Protocol Dextrose/Sodium Chloride 1,000 mls @ 100 mls/hr 08/23/18 15:11 08/24/18 15:26 D5-1/2ns - IV 100 mls/hr ASDIR ASHOK Administration Levothyroxine Sodium 62.5 mcg 08/23/18 10:00 08/24/18 10:32 Synthroid Injection - IVPUSH 62.5 mcg DAILY ASHOK Administration Metoprolol Tartrate 2.5 mg 08/23/18 16:00 08/24/18 15:25 Lopressor Injection - IVPB 2.5 mg Q6H-IV ASHOK Administration Ondansetron HCl 4 mg 08/24/18 03:19 08/24/18 03:47 Zofran Injection IVPB 4 mg Q6H PRN Administration NAUSEA Pantoprazole Sodium 40 mg 08/23/18 10:15 08/24/18 10:31 Protonix Iv IVPUSH 40 mg DAILY ASHOK Administration Trimethobenzamide HCl 200 mg 08/24/18 21:00 Tigan Injection - IM 08/24/18 21:01 ONCE ONE ASSESSMENT/PLAN: 73yF with PMH significant for HTN, hypothyroidism, diverticulitis s/p partial colectomy and chronic diarrhea who presented to the ED with abdominal pain and vomiting. She is admitted for diverticulitis. Diverticulitis - cont levaquin and flagyl - surgical consult appreciated - add tigan x 1 tonight for nausea - NPO for now, consider clear liquids in am if nausea improved Hypertension - BP elevated, will increase enalaprilat to 1.25mg ivpb q8h, hold for SBP less than 100 - cont metoprolol IV - switch to po in am if nausea improved hypothyroidism - cont levothyroxine IV for now, change to po in am if nausea improved DVT PPX - SCDs, OOB, ambulation FEN - D51/2NS @ 100cc/hr - BMP in am, replete lytes in am - NPO except meds Dispo: Pt continues to require inpatient management of her emergent condition. Visit type - Emergency Visit Emergency Visit: Yes ED Registration Date: 08/22/18 Care time: The patient presented to the Emergency Department on the above date and was hospitalized for further evaluation of their emergent condition. - New Patient This patient is new to me today: Yes Date on this admission: 08/24/18 - Critical Care Critical Care patient: No
[2018-08-24] MEDS ORDERED: ACETAMINOPHEN/CAFFEINE/BUTALBITAL 1 TAB PO ONE (18:45)
[2018-08-24] MEDS ORDERED: TRIMETHOBENZAMIDE HCL 200MG/2ML INJ IM ONE (21:00)
[2018-08-24] MEDS ORDERED: DEXTROSE 5%-0.45% SALINE 1,000 ML IV SCH (22:30)
[2018-08-25] MEDS ORDERED: PT OWN MED DRAWER 7, Y5N ONE ×3 (01:23→17:54)
[2018-08-25] MEDS: ENALAPRILAT DIHYDRATE 1.25 MG/1 ML VIAL IVPB SCH ×3 (01:30→18:14)
[2018-08-25] MEDS: METOPROLOL TARTRATE 5 MG/5 ML VIAL IVPB SCH ×4 (02:52→22:15)
[2018-08-25 08:36] LABS: BASO % 0.6 % (0-2.0); EOS % 1.4 % (0-4.5); HEMOGLOBIN 12.6 GM/dl (10.7-15.3); LYMPH % 20.4 % (8-40); MCH 31.4 pg (25.7-33.7); MCHC 33.1 g/dl (32.0-36.0); MEAN CELL VOLUME 94.9 fl (80-96); MEAN PLT VOLUME 8.7 fl (7.5-11.1); MONO % 11.7 % (3.8-10.2); NEUT % 65.9 % (42.8-82.8); PLATELET COUNT 146 K/MM3 (134-434); RBC 4.01 M/mm3 (3.60-5.2); RDW 12.6 % (11.6-15.6); WHITE BLOOD COUNT 4.2 K/mm3 (4.0-10.8)
[2018-08-25 08:42] LABS: ANION GAP 10 MMOL/L (8-16); BLOOD UREA NITROGEN 10 mg/dl (7-18); CALCIUM 8.9 mg/dl (8.4-10.2); CHLORIDE 100 mmol/L (98-107); CO2 27 mmol/L (22-28); CREATININE 0.8 mg/dl (0.6-1.3); GLUCOSE,RANDOM 107 mg/dl (74-106); PHOSPHOROUS 2.9 mg/dl (2.5-4.6); POTASSIUM 3.3 mmol/L (3.5-5.1); SODIUM 137 mmol/L (136-145)
[2018-08-25] MEDS: LEVOTHYROXINE SODIUM 100 MCG VIAL IVPUSH SCH (10:00)
--- NOTE | 2018-08-25 11:01 | PN ---
Progress Note (short form) - Note Progress Note: 73 yo female admitted 08/22/18 with extensive inflammatory changes/mural thickening of left colon, +microperf; no abscess. Found patient sitting in chair by the window. Resting comfortably without complaint. States her nausea has resolved. She continues to be oob and ambulate unassisted. Voiding spontaneoulsy. Had one loose bm (h/o chronic diarrhea). She is hungry. Denies n/v/f/c, CP, palpitations, SOB. Last Vital Signs Temp Pulse Resp BP Pulse Ox 97.5 F L 53 L 18 170/65 99 08/25/18 09:07 08/25/18 09:07 08/25/18 09:07 08/25/18 09:07 08/25/18 09:07 CBC, BMP 08/25/18 07:30 08/25/18 07:30 Gen: nad ABD: soft. nt. nd. + bs x4 LE: soft. nt bilat Problem List - Problems (1) Diverticulitis Assessment/Plan: f/u repeat CT A/P --> comparative study, if improvement can start clears liquids and advance as tolerated Replete Potassium BP control Cont OOB and ambulate Cont levaquin and flagyl --> switch to PO Above plan discussed with Dr. Torres and agrees Code(s): K57.92 - DVTRCLI OF INTEST, PART UNSP, W/O PERF OR ABSCESS W/O BLEED
[2018-08-25] MEDS: POTASSIUM CHLORIDE TABS 20 MEQ TABLET.ER (FP) PO SCH ×2 (12:11→15:53)
[2018-08-25] MEDS: PANTOPRAZOLE SODIUM 40 MG VIAL IVPUSH SCH (12:11)
[2018-08-25] MEDS ORDERED: ACETAMINOPHEN/CAFFEINE/BUTALBITAL 1 TAB PO PRN (15:21)
--- NOTE | 2018-08-25 19:36 | PN ---
Physical Exam: SUBJECTIVE: Patient seen and examined at bedside. Was feeling very well this morning, nausea returned about an hour ago. OBJECTIVE: Vital Signs Period Temp Pulse Resp BP Sys/Trivedi Pulse Ox Last 24 Hr 97.5 F-98.2 F 53-62 18-18 161-186/61-71 99-100 GENERAL: The patient is awake, alert, and fully oriented, in no acute distress. LUNGS: CTA HEART: Regular rate and rhythm, S1, S2 ABDOMEN: Soft, mild LLQ tenderness, normoactive bowel sounds, no guarding, no rebound tenderness EXTREMITIES: 2+ pulses, warm, well-perfused, no edema. NEUROLOGICAL: Cranial nerves II through XII grossly intact. Normal speech, gait not observed. SKIN: Warm, dry, normal turgor Laboratory Results - last 24 hr 08/25/18 08/25/18 07:30 07:30 WBC 4.2 RBC 4.01 Hgb 12.6 Hct 38.0 MCV 94.9 MCH 31.4 MCHC 33.1 RDW 12.6 Plt Count 146 MPV 8.7 Absolute Neuts (auto) 2.7 Neutrophils % 65.9 Lymphocytes % 20.4 Monocytes % 11.7 H Eosinophils % 1.4 Basophils % 0.6 Sodium 137 Potassium 3.3 L Chloride 100 Carbon Dioxide 27 Anion Gap 10 BUN 10 Creatinine 0.8 Creat Clearance w eGFR > 60 Random Glucose 107 H Calcium 8.9 Phosphorus 2.9 Magnesium 2.0 Active Medications Generic Name Dose Route Start Last Admin Trade Name Freq PRN Reason Stop Dose Admin Acetaminophen 650 mg 08/24/18 13:46 08/24/18 14:36 Tylenol - PO 650 mg Q4H PRN Administration PAIN Acetaminophen/Butalbital/Caffeine 1 tablet 08/25/18 15:21 Fioricet - PO Q4H PRN HEADACHE Enalaprilat 1.25 mg 08/24/18 17:18 08/25/18 18:14 Vasotec Injection - IVPB 1.25 mg Q8H-IV ASHOK Administration Metronidazole 250 mg in 50 mls @ 50 mls/hr 08/23/18 15:00 08/25/18 18:14 Flagyl 250mg Premixed Ivpb - IVPB 50 mls/hr Q8H-IV ASHOK Administration Dextrose/Sodium Chloride 1,000 mls @ 43 mls/hr 08/24/18 22:30 12/25/18 22:23 D5-1/2ns - IV 08/25/18 21:46 43 mls/hr ASDIR ASHOK Administration Levofloxacin 750 mg in 150 mls @ 150 mls/hr 08/26/18 10:00 Levaquin 750 Mg Premixed Ivpb - IVPB DAILY ASHOK Protocol Levothyroxine Sodium 62.5 mcg 08/23/18 10:00 08/25/18 10:00 Synthroid Injection - IVPUSH 62.5 mcg DAILY ASHOK Administration Metoprolol Tartrate 2.5 mg 08/23/18 16:00 08/25/18 15:53 Lopressor Injection - IVPB Not Given Q6H-IV ASHOK Ondansetron HCl 4 mg 08/24/18 03:19 08/24/18 03:47 Zofran Injection IVPB 4 mg Q6H PRN Administration NAUSEA Pantoprazole Sodium 40 mg 08/23/18 10:15 08/25/18 12:11 Protonix Iv IVPUSH 40 mg DAILY ASHOK Administration ASSESSMENT/PLAN 73-year-old female with a PMH significant for HTN, hypothyroidism, and chronic diarrhea. Multiple surgeries: colon resection for diverticulitis (2003), LLQ incisional hernia repair, midline ventral hernia repair, cholecystectomy. Acute Diverticulitis --08/22 CTAP: extensive inflammatory changes with mural thickening of entire remaining left colon with +microperforation; no discrete drainable abscess --low grade temp 100.4 on admission, afebrile since, no leukocytosis --continue levofloxacin (day #4) and metronidazole (day #3); switch to PO tomorrow --surgery following --repeat CTAP done, pending dictation Hypertension --BP has been elevated, continue Enalaprit, lopressor --restart home PO anti-hypertensives in am: Toprol XL and quinapril Hypothyroidism --continue levothyroxine IVP; switch to PO tomorrow Chronic diarrhea --stable Headache --likely from no caffeine intake --Fioricet PRN FEN Fluids: D51/2@43/hr Electrolytes: replete as indicated Nutrition: NPO pending results of today's CT scan as per surgery DVT prophylaxis: hold chemical prophylaxis for possible surgical intervention; SCDs, oob, ambulation Dispo: continues to require inpatient care. Visit type - Emergency Visit Emergency Visit: Yes ED Registration Date: 08/22/18 Care time: The patient presented to the Emergency Department on the above date and was hospitalized for further evaluation of their emergent condition. - New Patient This patient is new to me today: No - Critical Care Critical Care patient: No
[2018-08-25] MEDS ORDERED: MELATONIN 1 MG TABLET PO SCH (22:00)
[2018-08-26] MEDS ORDERED: PT OWN MED DRAWER 7, Y5N ONE (01:06)
[2018-08-26] MEDS: METOPROLOL TARTRATE 5 MG/5 ML VIAL IVPB SCH (04:00)
[2018-08-26 06:47] VITALS: BP 170/73; PULSE 62; TEMP 98.2
[2018-08-26] MEDS ORDERED: LEVOTHYROXINE NA 125 MCG TABLET (FP) PO SCH (07:00)
--- NOTE | 2018-08-26 09:01 | PN ---
Progress Note (short form) - Note Progress Note: 73yo F h/o diverticulitis, pt seen and examined at bedside. Pt states that she received clears last night that she tolerated well. Pt denies any fever, chills , n/v. States that she is having her normal chronic diarrhea, but no bloody stools. Pt states that she really wants to go home and that she feels fine. Last Vital Signs Temp Pulse Resp BP Pulse Ox 98.2 F 62 18 170/73 99 08/26/18 06:00 08/26/18 06:00 08/26/18 06:00 08/26/18 06:00 08/26/18 02:02 CBC, BMP 08/25/18 07:30 08/25/18 07:30 PE: Gen: A&O x3 Resp: breathing comfortably Abd: soft, nontender, nondistended. Ext: no edema Problem List - Problems (1) Diverticulitis Assessment/Plan: Plan -pt appears to be doing well, would advance diet and plan to discharge home with PO abx -pt should follow up with Dr. Torres as an outpatient in 1 week. -no surgical intervention at this time. Case discussed with Dr. Torres who agrees with plan Code(s): K57.92 - DVTRCLI OF INTEST, PART UNSP, W/O PERF OR ABSCESS W/O BLEED
[2018-08-26] MEDS: PANTOPRAZOLE SODIUM 40 MG VIAL IVPUSH SCH (09:07)
[2018-08-26] MEDS ORDERED: metoPROLOL SUCCINATE 25 MG TAB.SR.24H (FP) PO SCH (10:00)
[2018-08-26] MEDS ORDERED: QUINAPRIL HCL 20 MG TABLET (FP) PO SCH (10:00)
--- NOTE | 2018-08-26 10:46 | DS ---
Physical Exam: SUBJECTIVE: Patient seen and examined. Will advance diet today. If tolerates, patient would very much like to go home. OBJECTIVE: Vital Signs Period Temp Pulse Resp BP Sys/Trivedi Pulse Ox Last 24 Hr 98.2 F-99.3 F 57-70 16-18 146-177/67-73 99-100 PHYSICAL EXAM GENERAL: The patient is awake, alert, and fully oriented, in no acute distress. LUNGS: CTA HEART: Regular rate and rhythm, S1, S2 ABDOMEN: Soft, mild LLQ tenderness, normoactive bowel sounds, no guarding, no rebound tenderness EXTREMITIES: 2+ pulses, warm, well-perfused, no edema. NEUROLOGICAL: Cranial nerves II through XII grossly intact. Normal speech, gait not observed. SKIN: Warm, dry, normal turgor LABS CBCD WBC 4.2 K/mm3 (4.0-10.8) 08/25/18 07:30 RBC 4.01 M/mm3 (3.60-5.2) 08/25/18 07:30 Hgb 12.6 GM/dl (10.7-15.3) 08/25/18 07:30 Hct 38.0 % (32.4-45.2) 08/25/18 07:30 MCV 94.9 fl (80-96) 08/25/18 07:30 MCHC 33.1 g/dl (32.0-36.0) 08/25/18 07:30 RDW 12.6 % (11.6-15.6) 08/25/18 07:30 Plt Count 146 K/MM3 (134-434) 08/25/18 07:30 MPV 8.7 fl (7.5-11.1) 08/25/18 07:30 CMP Sodium 137 mmol/L (136-145) 08/25/18 07:30 Potassium 3.3 mmol/L (3.5-5.1) L 08/25/18 07:30 Chloride 100 mmol/L (98-107) 08/25/18 07:30 Carbon Dioxide 27 mmol/L (22-28) 08/25/18 07:30 Anion Gap 10 MMOL/L (8-16) 08/25/18 07:30 BUN 10 mg/dl (7-18) 08/25/18 07:30 Creatinine 0.8 mg/dl (0.6-1.3) 08/25/18 07:30 Creat Clearance w eGFR > 60 (>60) 08/25/18 07:30 Calcium 8.9 mg/dl (8.4-10.2) 08/25/18 07:30 Total Bilirubin 1.5 mg/dl (0.2-1.0) H 08/23/18 07:18 AST 14 U/L (10-42) 08/23/18 07:18 ALT 14 U/L (10-40) 08/23/18 07:18 Alkaline Phosphatase 84 U/L (32-92) 08/23/18 07:18 Total Protein 6.4 g/dl (6.4-8.3) 08/23/18 07:18 Albumin 3.5 g/dl (3.5-5.0) 08/23/18 07:18 HOSPITAL COURSE: Date of Admission:08/22/18 Date of Discharge: 08/26/18 Pre hospital course This is a 73 y/o woman with a past medical history of Diverticulitis, s/p Colon Resection (2003), HTN, Hypothyroidism, Non Alcoholic Fatty Liver Disease. Who presents to the ED with left lower quadrant pain, chills, nausea x 3 days with chronic diarrhea. Patient describes the pain as a feeling of bloating with tenderness. Patient reports having one episode of non-bloody, bilious emesis in the ED, as well as one during my interview/exam. Patient denies fever, cough, dizziness, SOB, CP, constipation, hematochezia, melena, hematuria, dysuria. ER course was notable for: (1) CTAP- extensive inflammatory changes around descending colon, ? microperforation (2) T Bili 1.2 (3) T Max 100.6 Subsequent hospital course 73-year-old female with a PMH significant for HTN, hypothyroidism, and chronic diarrhea. Multiple surgeries: colon resection for diverticulitis (2003), LLQ incisional hernia repair, midline ventral hernia repair, cholecystectomy. Acute Diverticulitis --08/22 CTAP: extensive inflammatory changes with mural thickening of entire remaining left colon with +microperforation; no discrete drainable abscess --low grade temp 100.4 on admission, afebrile for the rest of hospital stay, no leukocytosis --treated with levofloxacin and metronidzole x 4 days; no antibiotics on discharge --repeat CT on 08/25: improved pericolonic edema along the left colon; remainder essentially unchanged Hypertension --BP was stable while patient was NPO with Enalaprit and lopressor 2.5mg q6h --PO anti-hypertensives restarted on day of discharge: Toprol XL and quinapril Hypothyroidism --continued levothyroxine Chronic diarrhea --stable Headache --likely from no caffeine intake --treated with Fioricet PRN Minutes to complete discharge: 35 Discharge Summary Reason For Visit: DX DIVERTICULITIS Current Active Problems Abdominal pain (Acute) Diverticulitis (Acute) HTN (hypertension) (Acute) Hypothyroidism (Acute) Nausea and vomiting (Acute) Non-alcoholic fatty liver disease (Acute) Condition: Improved - Instructions Diet, Activity, Other Instructions: You should advance your diet VERY SLOWLY. Eat only what you can tolerate. Start with low fiber foods. Please follow up with Dr. Torres within 2 weeks of your discharge. Return to the emergency department for any new or worsening symptoms. Referrals: Jasper Torres MD [Staff Physician] - 2 Weeks Mathieu England MD [Primary Care Provider] - Disposition: HOME - Home Medications Comprehensive Discharge Medication List: Ambulatory Orders Aspirin [Aspir 81] 81 mg PO DAILY 06/13/13 Loperamide HCl/Simethicone [Imodium Multi-Symptom Rel Cplt] 1 each PO ASDIR tablet 10/29/16 Bismuth Subsalicylate [Pepto-Bismol -] 262 mg PO ASDIR 08/22/18 Hydrochlorothiazide [Hctz -] 25 mg PO DAILY 08/22/18 Levothyroxine [Synthroid -] 125 mcg PO DAILY 08/22/18 Metoprolol Succinate 25 mg PO DAILY 08/22/18 Quinapril HCl 20 mg PO DAILY 08/22/18 This patient is new to me today: No Emergency Visit: Yes ED Registration Date: 08/22/18 Care time: The patient presented to the Emergency Department on the above date and was hospitalized for further evaluation of their emergent condition. Critical Care patient: No - Discharge Referral Referred to [facility] No
--- NOTE | 2018-10-26 11:41 | EKG ---
Test Reason : Blood Pressure : / mmHG Vent. Rate : 078 BPM Atrial Rate : 078 BPM P-R Int : 178 ms QRS Dur : 090 ms QT Int : 396 ms P-R-T Axes : 056 020 024 degrees QTc Int : 451 ms NORMAL SINUS RHYTHM NORMAL ECG NO PREVIOUS ECGS AVAILABLE Confirmed by Dany Youngblood MD ([id number]) on 10/26/2018 11:40:21 AM Referred By: Confirmed By:Dany Youngblood MD
== END 2018-08-26 13:56 | disposition home or self-care (01) | DRG 392 ==
LOC: SUPCPDRO 10:51 → FER 10:51 → FM/S 16:18
PROVIDERS: ADMIT Internal Medicine; ATTEND Nurse Practitioner Acute Care
DX: K57.92 Diverticulitis of intestine, part unspecified, without perforation or abscess without bleeding (principal); I10 Essential (primary) hypertension; E03.9 Hypothyroidism, unspecified; K76.0 Fatty (change of) liver, not elsewhere classified; R11.2 Nausea with vomiting, unspecified; R19.7 Diarrhea, unspecified; R51 Headache
CPT/HCPCS: 36415; 74177-TC; 80048; 80053; 81003; 81015; 83735; 84100; 85025; 85610; 87040; 93005; 97116-GP; 97161-GP; 99283-25; J0131; J1644

== ENCOUNTER 2019-02-13 05:35 | Inpatient (IN) | payer OTHER, BC ==
--- NOTE | 2019-02-13 05:41 | PDOC ---
History of Present Illness - General Chief Complaint: Pain, Acute Stated Complaint: RLQ ABD PAIN Time Seen by Provider: 02/13/19 05:36 - History of Present Illness Initial Comments: 02/13/19 05:59 This 73-year-old history of HTN/diverticulitis (with sigmoid resection)/repair of incisional hernia/history of cholecystectomy presents with approximately 12 hour history of steady right lower quadrant pain. Patient states that she had "twinges" of pain earlier in the day but after dinner last evening she began to have persistent pain eventually associated with marked nausea (no vomiting). Pain became more severe throughout the night, worsening with movement. Most recent meal was 7 PM last night. Last bowel movement was during the day yesterday (loose stool but this is normal for her; no blood or black stool reported). No dysuria/urinary frequency/hematuria Patient was admitted here July, for left-sided diverticulitis. She reports no interim episodes of milder diverticulitis or other acute illnesses. Her PMD is Dr. England. She has been taking her medications as prescribed, stating that she took her morning dose with small amount of water this AM PMH As above; also, hypothyroidism No known ALLERGIES Meds as noted below Past History - Past Medical History Allergies/Adverse Reactions: Allergies Allergy/AdvReac Type Severity Reaction Status Date / Time No Known Allergies Allergy Verified 08/22/18 10:52 Home Medications: Ambulatory Orders Aspirin [Aspir 81] 81 mg PO DAILY 06/13/13 Loperamide HCl/Simethicone [Imodium Multi-Symptom Rel Cplt] 1 each PO ASDIR tablet 10/29/16 Hydrochlorothiazide [Hctz -] 25 mg PO DAILY 08/22/18 Levothyroxine [Synthroid -] 125 mcg PO DAILY 08/22/18 Metoprolol Succinate 25 mg PO DAILY 08/22/18 Quinapril HCl 20 mg PO DAILY 08/22/18 Amlodipine Besylate 5 mg PO DAILY 02/13/19 Colestipol HCl 1 gm PO DAILY 02/13/19 COPD: No HTN: Yes Liver Disease: Yes (NON ALCOHOLIC FATTY LIVER) Thyroid Disease: Yes (HYPO) - Surgical History Abdominal Surgery: Yes (COLON RESSECTION,HERNIA WITH MESH) Cholecystectomy: Yes - Suicide/Smoking/Psychosocial Hx Smoking History: Never smoked Have you smoked in the past 12 months: No Hx Alcohol Use: No Drug/Substance Use Hx: No Hx Substance Use Treatment: No Review of Systems - Review of Systems Able to Perform ROS?: Yes Comments:: 12 point review of systems is negative except for what is noted in the history of present illness *Physical Exam - Physical Exam Comments: GENERAL: Adult female, alert and oriented 3, in moderate distress secondary to lower abdominal pain HEAD: Normal with no signs of trauma. EYES: PERRLA, EOMI, sclera anicteric, conjunctiva clear. ENT: Ears normal, nares patent, oropharynx clear without exudates. Dry mucous membranes. NECK: Normal range of motion, supple without lymphadenopathy, JVD, or masses. LUNGS: Breath sounds equal, clear to auscultation bilaterally. No wheezes, and no crackles. HEART:Regular rate and rhythm, normal S1 and S2 without murmur, rub or gallop. ABDOMEN:.normal bowel sounds soft, nondistended. Marked RLQ tenderness with rebound/+rovsing, no involuntary guarding, no masses Moderate right flank tenderness EXTREMITIES: Normal range of motion, no edema. No clubbing or cyanosis. No erythema, or tenderness. NEUROLOGICAL: Cranial nerves II through XII grossly intact. Normal speech. No focal neurologic deficits. SKIN: Warm, Dry, normal turgor, no rashes or lesions noted. ED Treatment Course - LABORATORY CBC & Chemistry Diagram: 02/16/19 07:30 02/16/19 07:30 Medical Decision Making - Medical Decision Making 02/13/19 06:07 73-year-old woman with a history of multiple episodes of diverticulitis, s/p sigmoid resection presents with 12 hour history of progressive right lower quadrant pain with marked nausea/vomiting. Exam notable for low-grade fever, marked RLQ/moderate right flank tenderness with rebound. No palpable masses. Differential diagnosis includes acute right-sided diverticulitis/acute appendicitis, less likely small bowel obstruction in light of normal bowel sounds/soft abdomen without distention CBC/chemistry profile/INR/UA sent. Normal saline IV hydration/NPO/Zofran 4 mg IV and acetaminophen 1 g IV Abd/Pelvic CT 02/13/19 07:08 Case signed out to Dr Guerrero at end of shift. Labs pending. Patient will start PO contrast for CT *DC/Admit/Observation/Transfer Diagnosis at time of Disposition: Abdominal pain, Nausea, Other appendicitis - Discharge Dispostion Disposition: HOME Condition at time of disposition: Stable - Referrals - Patient Instructions - Post Discharge Activity
[2019-02-13 05:53] VITALS: BMI 33.3
[2019-02-13] MEDS ORDERED: SODIUM CHLORIDE 1,000 ML IV STA (05:57)
[2019-02-13] MEDS ORDERED: ONDANSETRON 4 MG/2 ML VIAL IVPUSH ONE ×2 (05:57→07:37)
[2019-02-13] MEDS ORDERED: ACETAMINOPHEN 1000 MG/100 ML VIAL (NON FORMULARY) IVPB ONE (05:58)
[2019-02-13] MEDS ORDERED: ACETAMINOPHEN INJECTION 100 ML IVPB ONE (05:59)
[2019-02-13] MEDS ORDERED: ONDANSETRON 4 MG/2 ML VIAL ONE ×2 (06:00→07:36)
[2019-02-13 07:14] LABS: BASO % 0.6 % (0-2.0); HEMATOCRIT 39.2 % (32.4-45.2); HEMOGLOBIN 13.3 GM/dL (10.7-15.3); LYMPH % 12.1 % (8-40); MCH 31.4 pg (25.7-33.7); MCHC 33.8 g/dl (32.0-36.0); MEAN CELL VOLUME 92.7 fl (80-96); MEAN PLT VOLUME 9.1 fl (7.5-11.1); NEUT % 77.3 % (42.8-82.8); PLATELET COUNT 129 K/MM3 (134-434); RBC 4.23 M/mm3 (3.60-5.2); RDW 14.1 % (11.6-15.6); WHITE BLOOD COUNT 6.9 K/mm3 (4.0-10.0)
[2019-02-13] MEDS ORDERED: morphine CARPU-JECT 4 MG/1 ML DISP.SYRIN IVPUSH ONE ×2 (07:23→11:02)
[2019-02-13] MEDS ORDERED: morphine SULFATE 4 MG/ML VIAL ONE ×2 (07:24→11:05)
--- NOTE | 2019-02-13 07:28 | PDOC ---
*Physical Exam - Vital Signs Last Vital Signs Temp Pulse Resp BP Pulse Ox 99.7 F H 93 H 18 143/88 97 02/13/19 05:49 02/13/19 05:49 02/13/19 05:49 02/13/19 05:49 02/13/19 05:49 ED Treatment Course - LABORATORY CBC & Chemistry Diagram: 02/13/19 06:05 02/13/19 06:05 - ADDITIONAL ORDERS Additional order review: 02/13/19 06:05 RBC 4.23 MCV 92.7 MCHC 33.8 RDW 14.1 MPV 9.1 Neutrophils % 77.3 Lymphocytes % 12.1 Monocytes % 9.0 Eosinophils % 1.0 Basophils % 0.6 - RADIOLOGY Radiology Studies Ordered: Category Date Time Status ABDOMEN & PELVIS CT WITH CONTR [CT] Stat CT Scan 02/13/19 07:22 Ordered - Medications Given in the ED: ED Medications Discontinued Medications Generic Name Dose Route Start Last Admin Trade Name Freq PRN Reason Stop Dose Admin Acetaminophen 1,000 mg 02/13/19 05:58 02/13/19 06:05 Ofirmev Injection - IVPB 02/13/19 05:59 1,000 mg ONCE ONE Administration Sodium Chloride 1,000 mls @ 1,000 mls/hr 02/13/19 05:57 02/13/19 06:15 Normal Saline - IV 02/13/19 06:56 1,000 mls/hr ASDIR STA Administration Ondansetron HCl 4 mg 02/13/19 05:57 02/13/19 06:14 Zofran Injection IVPUSH 02/13/19 05:58 4 mg ONCE ONE Administration Medical Decision Making - Medical Decision Making 02/13/19 07:[address] Maria at 0700 Briefly, 73yo F with extensive hx diverticulitis s/p sigmoid resection presents to the ED with 1 day of progressive RLQ pain, nausea Low grade temp 99.6 UA, Labs, CTAP pending Thus far, pt received zofran, IV tylenol On evaluation this AM, nausea improved but pt continues to have pain Pt appears uncomfortable, is very tender in RLQ Plan to give pt IV morphine 4mg In light of bowel resection in past, will also have pt start drinking PO contrast while labs are pending 02/13/19 10:30 CTAP with possible early appy Zosyn ordered Pt f/u with Dr. Salas as outpt for her diverticulitis Call placed, awaiting call back Pain and nausea have returned, will give morphine and reglan (pt has already received zofran 4mg) 02/13/19 11:[address] Arias (covering Dr. Salas), they are both out of town and recommend calling the medical authorization specialist surgeon Dr. Torres has been consulted, awaiting call back 02/13/19 11:[address] Torres, will evaluate [facility] 02/13/19 11:30 Case discussed with JOB SPECIFICATION WRITER Elliott, pt accepted for admission Case discussed in detail with admitting physician including history, physical exam and ancillary studies. Admitting physician has assumed care for the patient, will follow all pending diagnostics and will complete the evaluation and treatment. *DC/Admit/Observation/Transfer Diagnosis at time of Disposition: Abdominal pain, Nausea, Other appendicitis - Discharge Dispostion Condition at time of disposition: Stable - Referrals Referrals: Mathieu England MD [Primary Care Provider] - - Patient Instructions - Post Discharge Activity - Attestations Physician Attestion: 02/13/19 11:34 I, Dr. Mauro Guerrero MD, attest that this document has been prepared under my direction and personally reviewed by me in its entirety. I further attest, that it accurately reflects all work, treatment, procedures and medical decision -making performed by me.
[2019-02-13 07:30] LABS: ALBUMIN 3.9 g/dl (3.4-5.0); BILIRUBIN,TOTAL 1.2 mg/dL (0.2-1); BLOOD UREA NITROGEN 11.4 mg/dL (7-18); CREATININE 0.8 mg/dL (0.55-1.3); POTASSIUM 3.8 mmol/L (3.5-5.1); TOT PROT 6.8 g/dl (6.4-8.2)
[2019-02-13 08:07] LABS: INR 1.01 (0.83-1.09); PROTHROMBIN TIME (PATIENT) 11.9 SEC (9.7-13.0)
[2019-02-13] MEDS ORDERED: METOCLOPRAMIDE HCL INJECTION 10 MG/2 ML VIAL IVPB ONE (11:02)
[2019-02-13] MEDS ORDERED: METOCLOPRAMIDE HCL INJECTION 10 MG/2 ML VIAL ONE (11:05)
[2019-02-13] MEDS ORDERED: PIPERACILLIN/TAZOBACTAM 4.5 GM VIAL IVPB ONE (11:26)
[2019-02-13] MEDS: PIPERACILLIN/TAZOB 4.5 GM 4.5 GM in DEXTROSE 5%-WATER - 100 ML IVPB ONE ×2 (11:36→11:50)
[2019-02-13] MEDS ORDERED: D5-1/2NS+20 MEQ KCL - 20 MEQ/1,000 ML INFUS.BAG IV SCH (11:45)
--- NOTE | 2019-02-13 11:46 | HP ---
CHIEF COMPLAINT: Right lower quadrant pain PCP: Dr. England HISTORY OF PRESENT ILLNESS: 73-year-old female with a PMH significant for HTN, hypothyroidism, diverticulitis (hospitalized 07/2018), and h/o multiple abdominal surgeries. Patient presents to the ED for evaluation of right lower quadrant pain x 12 hours. Patient had "twinges" of pain during the day yesterday but after dinner last evening she began to have persistent pain eventually associated with marked nausea and shaking chills. Pain became more severe throughout the night; it is worse with movement. Most recent meal was 7 PM last night. Last bowel movement was during the day yesterday (loose stool but this is normal for her; no blood or black stool reported). No dysuria/urinary frequency/hematuria. ER course was notable for: (1) CTAP: slightly thickened appendix 8-9mm, no inflammatory changes or fluid collections (2) Tm100.2 (3) Zosyn x 1; morphine 4mg x 2; NS x 1L; Reglan x 1; Zofran x 2 Recent Travel: No PAST MEDICAL HISTORY: Hypertension Hypothyroidism Chronic diarrhea PAST SURGICAL HISTORY: Colon resection (2003) LLQ incisional hernia repair Midline ventral hernia repair Cholecystectomy Social History: Lives with spouse Smoking: never Alcohol:no Drugs: no Family History: Allergies No Known Allergies Allergy (Verified 08/22/18 10:52) HOME MEDICATIONS: Home Medications Medication Instructions Recorded Aspirin [Aspir 81] 81 mg PO DAILY 06/13/13 Loperamide HCl/Simethicone 1 each PO ASDIR tablet 10/29/16 [Imodium Multi-Symptom Rel Cplt] Hydrochlorothiazide [Hctz -] 25 mg PO DAILY 08/22/18 Levothyroxine [Synthroid -] 125 mcg PO DAILY 08/22/18 Metoprolol Succinate 25 mg PO DAILY 08/22/18 Quinapril HCl 20 mg PO DAILY 08/22/18 Amlodipine Besylate 5 mg PO DAILY 02/13/19 Colestipol HCl 1 gm PO DAILY 02/13/19 REVIEW OF SYSTEMS CONSTITUTIONAL: Absent: fever, chills, diaphoresis, generalized weakness, malaise, loss of appetite, weight change HEENT: Absent: rhinorrhea, nasal congestion, throat pain, throat swelling, difficulty swallowing, mouth swelling, ear pain, eye pain, visual changes CARDIOVASCULAR: Absent: chest pain, syncope, palpitations, irregular heart rate, lightheadedness , peripheral edema RESPIRATORY: Absent: cough, shortness of breath, dyspnea with exertion, orthopnea, wheezing, stridor, hemoptysis GASTROINTESTINAL: +RLQ pain, nausea Absent: abdominal pain, abdominal distension, nausea, vomiting, diarrhea, constipation, melena, hematochezia GENITOURINARY: Absent: dysuria, frequency, urgency, hesitancy, hematuria, flank pain, genital pain MUSCULOSKELETAL: Absent: myalgia, arthralgia, joint swelling, back pain, neck pain SKIN: Absent: rash, itching, pallor HEMATOLOGIC/IMMUNOLOGIC: Absent: easy bleeding, easy bruising, lymphadenopathy, frequent infections ENDOCRINE: Absent: unexplained weight gain, unexplained weight loss, heat intolerance, cold intolerance NEUROLOGIC: Absent: headache, focal weakness or paresthesias, dizziness, unsteady gait, seizure, mental status changes, bladder or bowel incontinence PSYCHIATRIC: Absent: anxiety, depression, suicidal or homicidal ideation, hallucinations. PHYSICAL EXAMINATION Vital Signs - 24 hr 02/13/19 02/13/19 02/13/19 05:49 07:43 10:52 Temperature 99.7 F H 99.5 F Pulse Rate 93 H Pulse Rate [ 82 82 Apical] Respiratory 18 18 18 Rate Blood Pressure 143/88 Blood Pressure 154/70 182/84 H [Arm] O2 Sat by Pulse 97 97 99 Oximetry (%) GENERAL: Awake, alert, and fully oriented, in mild distress secondary to abdominal pain LUNGS: Breath sounds equal, clear to auscultation bilaterally. No wheezes, and no crackles. No accessory muscle use. HEART: Regular rate and rhythm, normal S1 and S2 + murmur ABDOMEN: Soft, +bowel sounds, tender RLQ and RMQ, +rebound tenderness +guarding MUSCULOSKELETAL: Normal range of motion at all joints. No bony deformities or tenderness. UPPER EXTREMITIES: 2+ pulses, warm, well-perfused. No cyanosis. No clubbing. No peripheral edema. LOWER EXTREMITIES: 2+ pulses, warm, well-perfused. No calf tenderness. No peripheral edema. NEUROLOGICAL: Cranial nerves II-XII intact. Normal speech. Laboratory Results - last 24 hr 02/13/19 02/13/19 02/13/19 06:05 06:05 06:05 WBC 6.9 RBC 4.23 Hgb 13.3 Hct 39.2 MCV 92.7 MCH 31.4 MCHC 33.8 RDW 14.1 Plt Count 129 L MPV 9.1 Absolute Neuts (auto) 5.3 Neutrophils % 77.3 Lymphocytes % 12.1 Monocytes % 9.0 Eosinophils % 1.0 Basophils % 0.6 Nucleated RBC % 0 PT with INR 11.90 INR 1.01 Sodium 140 Potassium 3.8 Chloride 104 Carbon Dioxide 27 Anion Gap 9 BUN 11.4 Creatinine 0.8 Est GFR (CKD-EPI)AfAm 84.18 Est GFR (CKD-EPI)NonAf 72.63 Random Glucose 105 Calcium 9.0 Total Bilirubin 1.2 H AST 12 L ALT 21 Alkaline Phosphatase 113 Total Protein 6.8 Albumin 3.9 ASSESSMENT/PLAN: 73-year-old female with a PMH significant for HTN, hypothyroidism, diverticulitis (hospitalized 07/2018), and h/o multiple abdominal surgeries. Admitted for RLQ pain and nausea, r/o appendicitis. Abdominal pain r/o appendicitis --CTAP: slightly thickened appendix 8-9mm, no inflammatory changes or fluid collections --Tm100.2, no leukocytosis --Zosyn x 1 given in ED --Tylenol IV and morphine PRN for pain --Zofran PRN --NPO --IV fluids --surgery Dr. Torres following Hypertension --BP elevated, patient says took her BP meds this morning --continue amlodipine, HCTZ, Toprol XL Hypothyroidism --continue levothyroxine FEN Fluids: D51/2NS@125mL/hr Electrolytes: replete as indicated Nutrition: NPO except meds DVT prophylaxis: hold chemical prophylaxis for possible surgical intervention; SCDs Dispo: transfer to [facility] for surgical followup. Full code. Visit type - Emergency Visit Emergency Visit: Yes Care time: The patient presented to the Emergency Department on the above date and was hospitalized for further evaluation of their emergent condition. - New Patient This patient is new to me today: Yes Date on this admission: 02/13/19 - Critical Care Critical Care patient: No
[2019-02-13 11:55] LABS: EPI CELLS 0.1 /HPF (0-5/HPF); HYALINE CASTS 1 /lpf (0-8); URINE APPEARANCE CLEAR; URINE BACTERIA 4.9 /hpf (NEGATIVE); URINE BILIRUBIN NEGATIVE (NEGATIVE); URINE COLOR YELLOW; URINE GLUCOSE (UA) NEGATIVE (NEGATIVE); URINE KETONE NEGATIVE (NEGATIVE); URINE LEUK ESTERASE NEGATIVE (NEGATIVE); URINE NITRITE NEGATIVE (NEGATIVE); URINE PROTEIN NEGATIVE (NEGATIVE); URINE RBC 0 /hpf (0-4); URINE UROBILINOGEN 0.2 mg/dL (0.2-1.0); URINE WBC 1 /hpf (0-5)
[2019-02-13] MEDS ORDERED: ACETAMINOPHEN 1000 MG/100 ML VIAL (NON FORMULARY) IVPB PRN (12:01)
[2019-02-13] MEDS ORDERED: morphine CARPU-JECT 2 MG/1 ML DISP.SYRIN IVPUSH PRN (12:08)
[2019-02-13] MEDS: D5-1/2NS+20 MEQ KCL - 20 MEQ/1,000 ML INFUS.BAG IV SCH (12:22)
--- NOTE | 2019-02-13 15:36 | CONSULT ---
- Consultation REQUESTING PROVIDER: Rian Gallagher ELEMENTARY SUPERVISOR CONSULT REQUEST: We have been asked to surgically evaluate this patient for ( specify). PCP: HISTORY OF PRESENT ILLNESS: JUAN ANTONIO who is a 73 y/o white female well known to me from previous admission 08/17 who presented w/ # hours of RLQ pain preceeded by a few weeks ago of RLQ "irritation "; pain has always been in the RLQ and is somewhat sharp and w/o radiation and unlike the left sided pain she had in . She has some associated nausea w/o vomiting; pain not increased by moving around but les while lying still; she has no other GI//[employer] c/o. PMHx: HTN/HYPOTHYROID PSHx: partial colectomy/lap parvin/incisional hernia repair w/mesh. Home Medications Medication Instructions Recorded Aspirin [Aspir 81] 81 mg PO DAILY 06/13/13 Loperamide HCl/Simethicone 1 each PO ASDIR tablet 10/29/16 [Imodium Multi-Symptom Rel Cplt] Hydrochlorothiazide [Hctz -] 25 mg PO DAILY 08/22/18 Levothyroxine [Synthroid -] 125 mcg PO DAILY 08/22/18 Metoprolol Succinate 25 mg PO DAILY 08/22/18 Quinapril HCl 20 mg PO DAILY 08/22/18 Amlodipine Besylate 5 mg PO DAILY 02/13/19 Colestipol HCl 1 gm PO DAILY 02/13/19 Allergies Allergy/AdvReac Type Severity Reaction Status Date / Time No Known Allergies Allergy Verified 08/22/18 10:52 PHYSICAL EXAM: GENERAL: Awake, alert, and fully oriented, in no acute distress. HEAD: Normal with no signs of trauma. EYES: sclera anicteric, conjunctiva clear. NECK: Normal ROM, supple without lymphadenopathy, JVD, or masses. LUNGS: Clear to auscultation HEART: S1 S2 present. No murmurs ABDOMEN: Soft, tender in RLQ but not over McBurneys point, not distended, normoactive bowel sounds, no guarding, no rebound, no masses. No organomegaly. No hernias; healed surgical scar and port sites; temderness appears to be over one of her previous port sites in the RLQ. MUSCULOSKELETAL: Normal ROM at all joints. No bony deformities or tenderness. No CVA tenderness. UPPER EXTREMITIES: 2+ pulses, warm, well-perfused. No cyanosis. Cap refill <2 seconds. No peripheral edema. LOWER EXTREMITIES: 2+ pulses, warm, well-perfused. No calf tenderness. No peripheral edema. NEUROLOGICAL: Normal speech, gait not observed. PSYCH: Cooperative. Good eye contact. Appropriate mood and affect. SKIN: Warm, dry, normal turgor, no rashes or lesions noted. Vital Signs Temperature 99.9 F H 02/13/19 14:13 Pulse Rate 88 02/13/19 14:13 Respiratory Rate 16 02/13/19 14:13 Blood Pressure 142/58 L 02/13/19 14:13 O2 Sat by Pulse Oximetry (%) 97 02/13/19 11:50 Lab Results WBC 6.9 K/mm3 (4.0-10.0) 02/13/19 06:05 RBC 4.23 M/mm3 (3.60-5.2) 02/13/19 06:05 Hgb 13.3 GM/dL (10.7-15.3) 02/13/19 06:05 Hct 39.2 % (32.4-45.2) 02/13/19 06:05 MCV 92.7 fl (80-96) 02/13/19 06:05 MCHC 33.8 g/dl (32.0-36.0) 02/13/19 06:05 RDW 14.1 % (11.6-15.6) 02/13/19 06:05 Plt Count 129 K/MM3 (134-434) L 02/13/19 06:05 Sodium 140 mmol/L (136-145) 02/13/19 06:05 Potassium 3.8 mmol/L (3.5-5.1) 02/13/19 06:05 Chloride 104 mmol/L (98-107) 02/13/19 06:05 Carbon Dioxide 27 mmol/L (21-32) 02/13/19 06:05 Anion Gap 9 MMOL/L (8-16) 02/13/19 06:05 BUN 11.4 mg/dL (7-18) 02/13/19 06:05 Creatinine 0.8 mg/dL (0.55-1.3) 02/13/19 06:05 Random Glucose 105 mg/dL (74-106) 02/13/19 06:05 Calcium 9.0 mg/dL (8.5-10.1) 02/13/19 06:05 Blood Type O POSITIVE 02/13/19 13:20 Antibody Screen Negative 02/13/19 13:10 INR 1.01 (0.83-1.09) 02/13/19 06:05 CT scan a/p reviewed report and images w/the radiologist; there are no secondary signs of acute appendicitis. IMP: possible early appendicitis PLAN: NPO/IVF/IVABS/serial exams; appendicitis remains a possible dx.; we discussed possible appendectomy open vs. laparoscopic given he previous extensive abdominal sugery; r/b/t/a's d/w the patient and her son and and sister. Jasper Torres MD FACS
[2019-02-13] MEDS: MORPHINE SULFATE 2 MG/ML VIAL IVPUSH PRN (20:00)
--- NOTE | 2019-02-13 20:37 | PN ---
Progress Note (short form) - Note Progress Note: Attending Surgeon Seen in f/u after xfer from [facility]; no new c/o VSS; afebrile abdo-soft; minimally if any RLQ tenderness; o/w negative IMP: possible early appendicitis PLAN: Continue present tx.; re-evaluate in AM or prn sooner.. Jasper Torres MD FACS
[2019-02-14] MEDS: ONDANSETRON 4 MG/2 ML VIAL IVPUSH PRN ×2 (01:50→08:21)
--- NOTE | 2019-02-14 03:01 | HP ---
CHIEF COMPLAINT: Worsening Abdominal pain x 1 week PCP: Dr England HISTORY OF PRESENT ILLNESS: Pt is a 73-yo F with a PMH significant for HTN, hypothyroidism, NAFLD, diverticulitis (hospitalized 07/2018), s/p cholecystectomy and intestinal resections transferred from [facility] for worsening abdominal pain suspicious for acute appendicitis. Pt reports gradually worsening sharp RLQ abdominal pain that started about a week ago, which worsened today to 10/10 prompting her to go to [facility] ED. Initially there was no associated n/v, but this evening pt had nausea and vomited 50mls of bile per nurse. Pt reports the pain is currently at 7/10, constant, non radiating, generalized abdominal but worse in RLQ. Initially with no associated fever, not related to foods, or bowel movement, no associated dysuria. No change in diet, no sick contacts. Last meal was Thursday evening since she has been in the ED since Thursday am. Pt has had a BM since being in [facility] of brown, non-bloody semi-formed stool (pt reports usp diarrheal disease). No dysuria/urinary frequency/hematuria. [facility] ER course was notable for: (1) CTAP: slightly thickened appendix 8-9mm, no inflammatory changes or fluid collections, acute appendicitis cannot be r/o. Mild hepatosplenomegaly s/p cholecystectomy. Dilation of biliary tree. No evidence of obvious obstruction (2) Tm100.2 (3) Zosyn x 1; morphine 4mg x 2; NS x 1L; Reglan x 1; Zofran x [address] Torres- NPO/ IVF/Pain mx/ IV AB to reassess in am Recent Travel: PAST MEDICAL HISTORY: HTN, hypothyroidism, diverticulitis (hospitalized 07/2018), PAST SURGICAL HISTORY: s/p cholecystectomy and intestinal resections Social History: Smoking:Denies Alcohol: Drugs: Family History: Allergies No Known Allergies Allergy (Verified 08/22/18 10:52) HOME MEDICATIONS: Home Medications Medication Instructions Recorded Aspirin [Aspir 81] 81 mg PO DAILY 06/13/13 Loperamide HCl/Simethicone 1 each PO ASDIR tablet 10/29/16 [Imodium Multi-Symptom Rel Cplt] Hydrochlorothiazide [Hctz -] 25 mg PO DAILY 08/22/18 Levothyroxine [Synthroid -] 125 mcg PO DAILY 08/22/18 Metoprolol Succinate 25 mg PO DAILY 08/22/18 Quinapril HCl 20 mg PO DAILY 08/22/18 Amlodipine Besylate 5 mg PO DAILY 02/13/19 Colestipol HCl 1 gm PO DAILY 02/13/19 REVIEW OF SYSTEMS CONSTITUTIONAL: fever+, chills+ Absent: diaphoresis, generalized weakness, malaise, loss of appetite, weight change HEENT: Absent: rhinorrhea, nasal congestion, throat pain, throat swelling, difficulty swallowing, mouth swelling, ear pain, eye pain, visual changes CARDIOVASCULAR: Absent: chest pain, syncope, palpitations, irregular heart rate, lightheadedness , peripheral edema RESPIRATORY: Absent: cough, shortness of breath, dyspnea with exertion, orthopnea, wheezing, stridor, hemoptysis GASTROINTESTINAL:abdominal pain+, nausea+, vomiting+, Absent: abdominal distension, diarrhea, constipation, melena, hematochezia GENITOURINARY: Absent: dysuria, frequency, urgency, hesitancy, hematuria, flank pain, genital pain MUSCULOSKELETAL: Absent: myalgia, arthralgia, joint swelling, back pain, neck pain SKIN: Absent: rash, itching, pallor HEMATOLOGIC/IMMUNOLOGIC: Absent: easy bleeding, easy bruising, lymphadenopathy, frequent infections ENDOCRINE: Absent: unexplained weight gain, unexplained weight loss, heat intolerance, cold intolerance NEUROLOGIC: Absent: headache, focal weakness or paresthesias, dizziness, unsteady gait, seizure, mental status changes, bladder or bowel incontinence PSYCHIATRIC: Absent: anxiety, depression, suicidal or homicidal ideation, hallucinations. PHYSICAL EXAMINATION Vital Signs - 24 hr 02/13/19 02/13/19 02/13/19 05:49 07:43 10:52 Temperature 99.7 F H 99.5 F Pulse Rate 93 H Pulse Rate [ 82 82 Apical] Respiratory 18 18 18 Rate Blood Pressure 143/88 Blood Pressure 154/70 182/84 H [Arm] O2 Sat by Pulse 97 97 99 Oximetry (%) 02/13/19 02/13/19 02/13/19 11:50 13:01 14:13 Temperature 100.4 F H 100.2 F H 99.9 F H Pulse Rate 88 Pulse Rate [ 87 Apical] Respiratory 17 16 Rate Blood Pressure 142/58 L Blood Pressure 148/78 [Arm] O2 Sat by Pulse 97 Oximetry (%) 02/13/19 02/13/19 02/13/19 16:00 19:53 21:00 Temperature 99.8 F H 99.1 F Pulse Rate 87 86 Pulse Rate [ Apical] Respiratory 17 19 20 Rate Blood Pressure 138/69 135/67 Blood Pressure [Arm] O2 Sat by Pulse 97 95 Oximetry (%) 02/13/19 02/14/19 22:00 02:11 Temperature 99.2 F 98.1 F Pulse Rate 81 77 Pulse Rate [ Apical] Respiratory 20 20 Rate Blood Pressure 147/77 149/71 Blood Pressure [Arm] O2 Sat by Pulse Oximetry (%) GENERAL: Awake, alert, and fully oriented, in mild painful distress. HEAD: Normal with no signs of trauma. EYES: Pupils equal, round and reactive to light, extraocular movements intact, sclera anicteric, conjunctiva clear. No lid lag. EARS, NOSE, THROAT: Ears normal, nares patent, oropharynx clear without exudates. Dry mucous membranes. NECK: Normal range of motion, supple without lymphadenopathy, JVD, or masses. LUNGS: Breath sounds equal, clear to auscultation bilaterally. No wheezes, and no crackles. No accessory muscle use. HEART: Regular rate and rhythm, normal S1 and S2, 2/6 murmur LUSB ABDOMEN: Soft, generalized tenderness > RLQ, not distended, normoactive bowel sounds, voluntary guarding, MUSCULOSKELETAL: Normal range of motion at all joints. No bony deformities or tenderness. LOWER EXTREMITIES: 2+ pulses, warm, well-perfused. No calf tenderness. No peripheral edema. NEUROLOGICAL: Cranial nerves II-XII intact. Normal speech. Gait not observed. PSYCHIATRIC: Cooperative. Good eye contact. Appropriate mood and affect. SKIN: Warm, dry, normal turgor, no rashes or lesions noted, normal capillary refill. Laboratory Results - last 24 hr 02/13/19 02/13/19 02/13/19 06:05 06:05 06:05 WBC 6.9 RBC 4.23 Hgb 13.3 Hct 39.2 MCV 92.7 MCH 31.4 MCHC 33.8 RDW 14.1 Plt Count 129 L MPV 9.1 Absolute Neuts (auto) 5.3 Neutrophils % 77.3 Lymphocytes % 12.1 Monocytes % 9.0 Eosinophils % 1.0 Basophils % 0.6 Nucleated RBC % 0 PT with INR 11.90 INR 1.01 Sodium 140 Potassium 3.8 Chloride 104 Carbon Dioxide 27 Anion Gap 9 BUN 11.4 Creatinine 0.8 Est GFR (CKD-EPI)AfAm 84.18 Est GFR (CKD-EPI)NonAf 72.63 Random Glucose 105 Calcium 9.0 Total Bilirubin 1.2 H AST 12 L ALT 21 Alkaline Phosphatase 113 Total Protein 6.8 Albumin 3.9 Urine Color Urine Appearance Urine pH Ur Specific [place] Urine Protein Urine Glucose (UA) Urine Ketones Urine Blood Urine Nitrite Urine Bilirubin Urine Urobilinogen Ur Leukocyte Esterase Urine WBC (Auto) Urine RBC (Auto) Urine Casts (Auto) U Epithel Cells (Auto) Urine Bacteria (Auto) Blood Type Antibody Screen 02/13/19 02/13/19 02/13/19 07:31 07:33 13:10 WBC RBC Hgb Hct MCV MCH MCHC RDW Plt Count MPV Absolute Neuts (auto) Neutrophils % Lymphocytes % Monocytes % Eosinophils % Basophils % Nucleated RBC % PT with INR INR Sodium Potassium Chloride Carbon Dioxide Anion Gap BUN Creatinine Est GFR (CKD-EPI)AfAm Est GFR (CKD-EPI)NonAf Random Glucose Calcium Total Bilirubin AST ALT Alkaline Phosphatase Total Protein Albumin Urine Color Cancelled Yellow Urine Appearance Cancelled Clear Urine pH Cancelled 5.0 Ur Specific [place] 1.006 L Urine Protein Cancelled Negative Urine Glucose (UA) Cancelled Negative Urine Ketones Cancelled Negative Urine Blood Cancelled Trace Urine Nitrite Cancelled Negative Urine Bilirubin Cancelled Negative Urine Urobilinogen Cancelled 0.2 Ur Leukocyte Esterase Cancelled Negative Urine WBC (Auto) 1 Urine RBC (Auto) 0 Urine Casts (Auto) 1 U Epithel Cells (Auto) 0.1 Urine Bacteria (Auto) 4.9 Blood Type O POSITIVE Antibody Screen Negative 02/13/19 13:20 WBC RBC Hgb Hct MCV MCH MCHC RDW Plt Count MPV Absolute Neuts (auto) Neutrophils % Lymphocytes % Monocytes % Eosinophils % Basophils % Nucleated RBC % PT with INR INR Sodium Potassium Chloride Carbon Dioxide Anion Gap BUN Creatinine Est GFR (CKD-EPI)AfAm Est GFR (CKD-EPI)NonAf Random Glucose Calcium Total Bilirubin AST ALT Alkaline Phosphatase Total Protein Albumin Urine Color Urine Appearance Urine pH Ur Specific [place] Urine Protein Urine Glucose (UA) Urine Ketones Urine Blood Urine Nitrite Urine Bilirubin Urine Urobilinogen Ur Leukocyte Esterase Urine WBC (Auto) Urine RBC (Auto) Urine Casts (Auto) U Epithel Cells (Auto) Urine Bacteria (Auto) Blood Type O POSITIVE Antibody Screen Ambulatory Orders Aspirin [Aspir 81] 81 mg PO DAILY 06/13/13 Loperamide HCl/Simethicone [Imodium Multi-Symptom Rel Cplt] 1 each PO ASDIR tablet 10/29/16 Hydrochlorothiazide [Hctz -] 25 mg PO DAILY 08/22/18 Levothyroxine [Synthroid -] 125 mcg PO DAILY 08/22/18 Metoprolol Succinate 25 mg PO DAILY 08/22/18 Quinapril HCl 20 mg PO DAILY 08/22/18 Amlodipine Besylate 5 mg PO DAILY 02/13/19 Colestipol HCl 1 gm PO DAILY 02/13/19 Current Medications Acetaminophen (Ofirmev Injection -) 1,000 mg IVPB Q6H PRN PRN Reason: PAIN LEVEL 1-5 Amlodipine Besylate (Norvasc -) 5 mg PO DAILY [facility] Cefazolin Sodium/Dextrose (Ancef 2 Gm Premixed Ivpb -) 2 gm IVPB Q8H-IV [facility] Hydrochlorothiazide (Hctz -) 25 mg PO DAILY [facility] Potassium Chloride/Dextrose/Sod Cl (D5-1/2ns+20 Meq Kcl -) 20 meq in 1,000 mls @ 125 mls/hr IV ASDIR ASHOK Last Admin: 02/13/19 12:22 Dose: 125 mls/hr Metronidazole (Flagyl 500mg Premixed Ivpb -) 500 mg in 100 mls @ 100 mls/hr IVPB Q8H-IV [facility] Levothyroxine Sodium (Synthroid -) 125 mcg PO AM [facility] Metoprolol Succinate (Toprol Xl -) 25 mg PO DAILY [facility] Morphine Sulfate (Morphine Sulfate) 2 mg IVPUSH Q4H PRN PRN Reason: PAIN LEVEL 6-10 Last Admin: 02/14/19 03:05 Dose: 2 mg Ondansetron HCl (Zofran Injection) 4 mg IVPUSH Q4H PRN PRN Reason: NAUSEA AND/OR VOMITING Last Admin: 02/14/19 01:50 Dose: 4 mg Quinapril HCl (Accupril -) 20 mg PO DAILY [facility] ASSESSMENT/PLAN: Pt is a 73-yo F with a PMH significant for HTN, hypothyroidism, NAFLD, diverticulitis (hospitalized 07/2018), s/p cholecystectomy and intestinal resections transferred from [facility] for worsening abdominal pain suspicious for acute appendicitis. #Abdominal Pain Likely in setting of acute appendicitis CTAP with thickened appendix 8-9mm CT shows dilated biliary tree-Abd US, pt is s/p cholecystectomy Pt received zosyn at [facility] Cont cefazolin 2g Q8H Cont metronidazole 500mg Q8H Pain mx with morphine 2mg Q4H Tylenol 1g Q6H #HTN Cont amlodipine 5mg Hold HCTZ with fluid Cont metoprolol hypothyroidism, NAFLD, diverticulitis (hospitalized 07/2018),
[2019-02-14] MEDS: MORPHINE SULFATE 2 MG/ML VIAL IVPUSH PRN ×2 (03:05→10:05)
[2019-02-14] MEDS: ceFAZolin 2 GRAM PREMIX BAG IVPB SCH ×2 (03:51→09:12)
--- NOTE | 2019-02-14 05:48 | PN ---
Physical Exam: SUBJECTIVE: Patient seen and examined. C/o of pain and new onset nausea. Just vomited about 50cc of bile. OBJECTIVE: Vital Signs Period Temp Pulse Resp BP Sys/Trivedi Pulse Ox Last 24 Hr 98.1 F-100.4 F 76-93 16-20 135-182/58-88 95-99 Vital Signs Temp 98.6 F 02/14/19 05:15 Pulse 76 02/14/19 05:15 Resp 20 02/14/19 05:15 BP 146/72 02/14/19 05:15 Pulse Ox 95 02/13/19 21:00 Intake & Output 02/13/19 02/13/19 02/14/19 11:59 23:59 11:59 Intake Total 1200 775 Output Total 50 Balance 1200 775 -50 Weight 82.554 kg 82.554 kg Intake: IV 1000 675 D5-1/2NS+20 MEQ KCL - 20 675 meq In 1,000 ml @ 125 mls /hr IV ASDIR ASHOK Rx#: [id number] Normal Saline - 1,000 ml 1000 @ 1000 mls/hr IV ASDIR STA Rx#:[id number] IVPB 200 100 Oral 0 Output: Emesis 50 Other: Voiding Method Toilet Toilet # Unmeasured Voids Void 2 2 2 Bowel Movement No Height 1.57 m 1.57 m Body Mass Index (BMI) 33.3 33.3 Weight Measurement Method Est/Stated by Patient GENERAL: Awake, alert, and fully oriented, in mild painful distress. HEAD: Normal with no signs of trauma. EYES: Pupils equal, round and reactive to light, extraocular movements intact, sclera anicteric, conjunctiva clear. No lid lag. EARS, NOSE, THROAT: Ears normal, nares patent, oropharynx clear without exudates. Dry mucous membranes. NECK: Normal range of motion, supple without lymphadenopathy, JVD, or masses. LUNGS: Breath sounds equal, clear to auscultation bilaterally. No wheezes, and no crackles. No accessory muscle use. HEART: Regular rate and rhythm, normal S1 and S2, 2/6 murmur LUSB ABDOMEN: Soft, generalized tenderness > RLQ, not distended, normoactive bowel sounds, voluntary guarding, MUSCULOSKELETAL: Normal range of motion at all joints. No bony deformities or tenderness. LOWER EXTREMITIES: 2+ pulses, warm, well-perfused. No calf tenderness. No peripheral edema. NEUROLOGICAL: Cranial nerves II-XII intact. Normal speech. Gait not observed. PSYCHIATRIC: Cooperative. Good eye contact. Appropriate mood and affect. SKIN: Warm, dry, normal turgor, no rashes or lesions noted, normal capillary refill. Laboratory Results - last 24 hr 02/13/19 02/13/19 02/13/19 06:05 06:05 06:05 WBC 6.9 RBC 4.23 Hgb 13.3 Hct 39.2 MCV 92.7 MCH 31.4 MCHC 33.8 RDW 14.1 Plt Count 129 L MPV 9.1 Absolute Neuts (auto) 5.3 Neutrophils % 77.3 Lymphocytes % 12.1 Monocytes % 9.0 Eosinophils % 1.0 Basophils % 0.6 Nucleated RBC % 0 PT with INR 11.90 INR 1.01 Sodium 140 Potassium 3.8 Chloride 104 Carbon Dioxide 27 Anion Gap 9 BUN 11.4 Creatinine 0.8 Est GFR (CKD-EPI)AfAm 84.18 Est GFR (CKD-EPI)NonAf 72.63 Random Glucose 105 Calcium 9.0 Total Bilirubin 1.2 H Direct Bilirubin AST 12 L ALT 21 Alkaline Phosphatase 113 Total Protein 6.8 Albumin 3.9 Urine Color Urine Appearance Urine pH Ur Specific [place] Urine Protein Urine Glucose (UA) Urine Ketones Urine Blood Urine Nitrite Urine Bilirubin Urine Urobilinogen Ur Leukocyte Esterase Urine WBC (Auto) Urine RBC (Auto) Urine Casts (Auto) U Epithel Cells (Auto) Urine Bacteria (Auto) Blood Type Antibody Screen 02/13/19 02/13/19 02/13/19 07:31 07:33 13:10 WBC RBC Hgb Hct MCV MCH MCHC RDW Plt Count MPV Absolute Neuts (auto) Neutrophils % Lymphocytes % Monocytes % Eosinophils % Basophils % Nucleated RBC % PT with INR INR Sodium Potassium Chloride Carbon Dioxide Anion Gap BUN Creatinine Est GFR (CKD-EPI)AfAm Est GFR (CKD-EPI)NonAf Random Glucose Calcium Total Bilirubin Direct Bilirubin AST ALT Alkaline Phosphatase Total Protein Albumin Urine Color Cancelled Yellow Urine Appearance Cancelled Clear Urine pH Cancelled 5.0 Ur Specific [place] 1.006 L Urine Protein Cancelled Negative Urine Glucose (UA) Cancelled Negative Urine Ketones Cancelled Negative Urine Blood Cancelled Trace Urine Nitrite Cancelled Negative Urine Bilirubin Cancelled Negative Urine Urobilinogen Cancelled 0.2 Ur Leukocyte Esterase Cancelled Negative Urine WBC (Auto) 1 Urine RBC (Auto) 0 Urine Casts (Auto) 1 U Epithel Cells (Auto) 0.1 Urine Bacteria (Auto) 4.9 Blood Type O POSITIVE Antibody Screen Negative 02/13/19 02/14/19 13:20 04:05 WBC RBC Hgb Hct MCV MCH MCHC RDW Plt Count MPV Absolute Neuts (auto) Neutrophils % Lymphocytes % Monocytes % Eosinophils % Basophils % Nucleated RBC % PT with INR INR Sodium Potassium Chloride Carbon Dioxide Anion Gap BUN Creatinine Est GFR (CKD-EPI)AfAm Est GFR (CKD-EPI)NonAf Random Glucose Calcium Total Bilirubin Direct Bilirubin 0.5 H AST ALT Alkaline Phosphatase Total Protein Albumin Urine Color Urine Appearance Urine pH Ur Specific [place] Urine Protein Urine Glucose (UA) Urine Ketones Urine Blood Urine Nitrite Urine Bilirubin Urine Urobilinogen Ur Leukocyte Esterase Urine WBC (Auto) Urine RBC (Auto) Urine Casts (Auto) U Epithel Cells (Auto) Urine Bacteria (Auto) Blood Type O POSITIVE Antibody Screen Active Medications Generic Name Dose Route Start Last Admin Trade Name Freq PRN Reason Stop Dose Admin Acetaminophen 1,000 mg 02/13/19 12:01 Ofirmev Injection - IVPB Q6H PRN PAIN LEVEL 1-5 Amlodipine Besylate 5 mg 02/14/19 10:00 Norvasc - PO DAILY ASHOK Cefazolin Sodium/Dextrose 2 gm 02/14/19 03:30 02/14/19 03:51 Ancef 2 Gm Premixed Ivpb - IVPB 2 gm Q8H-IV ASHOK Administration Hydrochlorothiazide 25 mg 02/14/19 10:00 Hctz - PO DAILY ASHOK Potassium Chloride/Dextrose/Sod Cl 20 meq in 1,000 mls @ 125 mls/hr 02/13/19 12:16 02/13/19 12:22 D5-1/2ns+20 Meq Kcl - IV 125 mls/hr ASDIR ASHOK Administration Metronidazole 500 mg in 100 mls @ 100 mls/hr 02/14/19 03:30 02/14/19 04:12 Flagyl 500mg Premixed Ivpb - IVPB 100 mls/hr Q8H-IV ASHOK Administration Levothyroxine Sodium 125 mcg 02/14/19 07:00 Synthroid - PO AM ASHOK Metoprolol Succinate 25 mg 02/14/19 10:00 Toprol Xl - PO DAILY ASHOK Morphine Sulfate 2 mg 02/13/19 19:56 02/14/19 03:05 Morphine Sulfate IVPUSH 2 mg Q4H PRN Administration PAIN LEVEL 6-10 Ondansetron HCl 4 mg 02/13/19 12:15 02/14/19 01:50 Zofran Injection IVPUSH 4 mg Q4H PRN Administration NAUSEA AND/OR VOMITING Quinapril HCl 20 mg 02/14/19 10:00 Accupril - PO DAILY [facility] Current Medications Acetaminophen (Ofirmev Injection -) 1,000 mg IVPB Q6H PRN PRN Reason: PAIN LEVEL 1-5 Amlodipine Besylate (Norvasc -) 5 mg PO DAILY [facility] Cefazolin Sodium/Dextrose (Ancef 2 Gm Premixed Ivpb -) 2 gm IVPB Q8H-IV ASHOK Last Admin: 02/14/19 03:51 Dose: 2 gm Hydrochlorothiazide (Hctz -) 25 mg PO DAILY [facility] Potassium Chloride/Dextrose/Sod Cl (D5-1/2ns+20 Meq Kcl -) 20 meq in 1,000 mls @ 125 mls/hr IV ASDIR ASHOK Last Admin: 02/13/19 12:22 Dose: 125 mls/hr Metronidazole (Flagyl 500mg Premixed Ivpb -) 500 mg in 100 mls @ 100 mls/hr IVPB Q8H-IV ASHOK Last Admin: 02/14/19 04:12 Dose: 100 mls/hr Levothyroxine Sodium (Synthroid -) 125 mcg PO AM [facility] Metoprolol Succinate (Toprol Xl -) 25 mg PO DAILY [facility] Morphine Sulfate (Morphine Sulfate) 2 mg IVPUSH Q4H PRN PRN Reason: PAIN LEVEL 6-10 Last Admin: 02/14/19 03:05 Dose: 2 mg Ondansetron HCl (Zofran Injection) 4 mg IVPUSH Q4H PRN PRN Reason: NAUSEA AND/OR VOMITING Last Admin: 02/14/19 01:50 Dose: 4 mg Quinapril HCl (Accupril -) 20 mg PO DAILY [facility] Ambulatory Orders Aspirin [Aspir 81] 81 mg PO DAILY 06/13/13 Loperamide HCl/Simethicone [Imodium Multi-Symptom Rel Cplt] 1 each PO ASDIR tablet 10/29/16 Hydrochlorothiazide [Hctz -] 25 mg PO DAILY 08/22/18 Levothyroxine [Synthroid -] 125 mcg PO DAILY 08/22/18 Metoprolol Succinate 25 mg PO DAILY 08/22/18 Quinapril HCl 20 mg PO DAILY 08/22/18 Amlodipine Besylate 5 mg PO DAILY 02/13/19 Colestipol HCl 1 gm PO DAILY 02/13/19 CTAP: slightly thickened appendix 8-9mm, no inflammatory changes or fluid collections, acute appendicitis cannot be r/o. Mild hepatosplenomegaly s/p cholecystectomy. Dilation of biliary tree. No evidence of obvious obstruction ASSESSMENT/PLAN: Pt is a 73-yo F with a PMH significant for HTN, hypothyroidism, NAFLD, diverticulitis (hospitalized 07/2018), s/p cholecystectomy and intestinal resections transferred from [facility] for worsening abdominal pain suspicious for acute appendicitis. #Abdominal Pain Likely in setting of acute appendicitis CTAP with thickened appendix 8-9mm CT shows dilated biliary tree-Abd US, pt is s/p cholecystectomy Pt received zosyn at [place] Cont cefazolin 2g Q8H Cont metronidazole 500mg Q8H Pain mx with morphine 2mg Q4H Tylenol 1g Q6H #N/V In setting of acute abdomen Cont zofran/metoclopramide #HTN Cont amlodipine 5mg Hold HCTZ with fluid Cont metoprolol #hypothyroidism Cont levothyroxine #NAFLD Jarad- elevated Add Dbili No evidence of mass on imaging Abd US #Hx of diverticulitis (hospitalized 07/2018) S/p resection No evidence of diverticulitis or bowel obstruction Cont to monitor FEN Hold Chemical Anticoagulation, SCDs NPO Medsurg Visit type - Emergency Visit Emergency Visit: Yes ED Registration Date: 02/13/19 Care time: The patient presented to the Emergency Department on the above date and was hospitalized for further evaluation of their emergent condition. - New Patient This patient is new to me today: Yes Date on this admission: 02/13/19 - Critical Care Critical Care patient: No
--- NOTE | 2019-02-14 06:04 | PN ---
Teaching Attending Note Name of Resident: Wanda Ng ATTENDING PHYSICIAN STATEMENT I saw and evaluated the patient. I reviewed the resident's note and discussed the case with the resident. I agree with the resident's findings and plan as documented. SUBJECTIVE: Seen as transfer from ; reviewed H and P. No new complaints; abdominal pain resumed so giving PRN management. No nausea/ vomiting/diarrhea. Surgery to see. Appreciate expert consultation. All questions answered. 10 sys ROS done and negative aside from HPI Current Medications Generic Name Dose Route Start Last Admin Trade Name Freq PRN Reason Stop Dose Admin Acetaminophen 1,000 mg 02/13/19 12:01 Ofirmev Injection - IVPB Q6H PRN PAIN LEVEL 1-5 Amlodipine Besylate 5 mg 02/14/19 10:00 Norvasc - PO DAILY ASHOK Cefazolin Sodium/Dextrose 2 gm 02/14/19 03:30 02/14/19 03:51 Ancef 2 Gm Premixed Ivpb - IVPB 2 gm Q8H-IV ASHOK Administration Potassium Chloride/Dextrose/Sod Cl 20 meq in 1,000 mls @ 125 mls/hr 02/13/19 12:16 02/13/19 12:22 D5-1/2ns+20 Meq Kcl - IV 125 mls/hr ASDIR ASHOK Administration Metronidazole 500 mg in 100 mls @ 100 mls/hr 02/14/19 03:30 02/14/19 04:12 Flagyl 500mg Premixed Ivpb - IVPB 100 mls/hr Q8H-IV ASHOK Administration Levothyroxine Sodium 125 mcg 02/14/19 07:00 02/14/19 06:05 Synthroid - PO 125 mcg AM ASHOK Administration Metoprolol Succinate 25 mg 02/14/19 10:00 Toprol Xl - PO DAILY ASHOK Morphine Sulfate 2 mg 02/13/19 19:56 02/14/19 03:05 Morphine Sulfate IVPUSH 2 mg Q4H PRN Administration PAIN LEVEL 6-10 Ondansetron HCl 4 mg 02/13/19 12:15 02/14/19 01:50 Zofran Injection IVPUSH 4 mg Q4H PRN Administration NAUSEA AND/OR VOMITING Quinapril HCl 20 mg 02/14/19 10:00 Accupril - PO DAILY ASHOK OBJECTIVE: VS, labs, imaging reviewed NAD, AAO, resting in bed TTP R-side, ND, +BS NC AT EOMI PERRLA RRR s1/2 no mgr Lungs CTAB, w/ sym exp CN2-12 wnl, no fnd Normal mood, appropriate behavior Imaging, admission labs, etc. reviewed Mild hepatosplenomegaly, s/p cholecystectomy with dilation of biliary tree without obvious obstruction; MRCP may be warranted per radiology Slightly thickened appendix ASSESSMENT AND PLAN: Patient presents for possible appendicitis; Dr. Torres following. Also found to have biliary tree dilation with slightly elevated bilirubin 1) Possible appendicitis -Continue empiric abx, followup with surgical recommendations. Afebrile and hemodynamically stable at the moment. -NPO, IVF. Pain and nausea control. Incentive spirometry. 2) Dilated biliary tree with elevated bili s/p parvin -Checking US; will try to obtain OP records. No prior addressing of this in house. Fractionate bili. May require MRCP pending further results and information from old records. 3) Hx HTN -Verify and continue home meds; she is not septic. Monitor BP. 4) Chronic Thrombocytopenia -Goes back years; can followup OP with HIV and Hepatitis testing. Noted hepatosplenomegaly 5) Hx Hypothyroidism
[2019-02-14] MEDS ORDERED: LEVOTHYROXINE NA 125 MCG TABLET (FP) PO SCH (07:00)
--- NOTE | 2019-02-14 08:11 | SPA.PREOP ---
- PRE-OP NOTE Dx: appendicitis Planned Procedure: Laparoscopic appendectomy, possibly open Surgeon: Melissa Last Vital Signs Temp Pulse Resp BP Pulse Ox 98.6 F 76 20 146/72 95 02/14/19 05:15 02/14/19 05:15 02/14/19 05:15 02/14/19 05:15 02/13/19 21:00 Lab Results WBC 6.9 K/mm3 (4.0-10.0) 02/13/19 06:05 RBC 4.23 M/mm3 (3.60-5.2) 02/13/19 06:05 Hgb 13.3 GM/dL (10.7-15.3) 02/13/19 06:05 Hct 39.2 % (32.4-45.2) 02/13/19 06:05 MCV 92.7 fl (80-96) 02/13/19 06:05 MCHC 33.8 g/dl (32.0-36.0) 02/13/19 06:05 RDW 14.1 % (11.6-15.6) 02/13/19 06:05 Plt Count 129 K/MM3 (134-434) L 02/13/19 06:05 Sodium 140 mmol/L (136-145) 02/13/19 06:05 Potassium 3.8 mmol/L (3.5-5.1) 02/13/19 06:05 Chloride 104 mmol/L (98-107) 02/13/19 06:05 Carbon Dioxide 27 mmol/L (21-32) 02/13/19 06:05 Anion Gap 9 MMOL/L (8-16) 02/13/19 06:05 BUN 11.4 mg/dL (7-18) 02/13/19 06:05 Creatinine 0.8 mg/dL (0.55-1.3) 02/13/19 06:05 Random Glucose 105 mg/dL (74-106) 02/13/19 06:05 Calcium 9.0 mg/dL (8.5-10.1) 02/13/19 06:05 Blood Type O POSITIVE 02/13/19 13:20 Antibody Screen Negative 02/13/19 13:10 INR 1.01 (0.83-1.09) 02/13/19 06:05 Problem List - Problems (1) Appendicitis Assessment/Plan: 1. continue NPO except po meds 2. GI/DVT PPX 3. Medical optimization / clearance 4. Consent to be obtained by surgeon after risks, benefits and alternatives discussed with patient and or Health Care Proxy. 5. OR today with Dr Torres for laparoscopic appendectomy possibly open. Code(s): K37 - UNSPECIFIED APPENDICITIS
[2019-02-14 09:21] LABS: BASO % 0.5 % (0-2.0); EOS % 0.3 % (0-4.5); HEMATOCRIT 37.1 % (32.4-45.2); HEMOGLOBIN 12.6 GM/dL (10.7-15.3); LYMPH % 12.7 % (8-40); MCH 31.9 pg (25.7-33.7); MCHC 33.9 g/dl (32.0-36.0); MEAN CELL VOLUME 93.9 fl (80-96); MONO % 8.1 % (3.8-10.2); NEUT % 78.4 % (42.8-82.8); RBC 3.95 M/mm3 (3.60-5.2); RDW 14.1 % (11.6-15.6); WHITE BLOOD COUNT 5.2 K/mm3 (4.0-10.0)
[2019-02-14 09:54] LABS: ALBUMIN 3.5 g/dl (3.4-5.0); BILIRUBIN,TOTAL 1.7 mg/dL (0.2-1); CALCIUM 8.4 mg/dL (8.5-10.1); CREATININE 0.8 mg/dL (0.55-1.3); MAGNESIUM 2.3 mg/dL (1.8-2.4); POTASSIUM 4.2 mmol/L (3.5-5.1); TOT PROT 6.5 g/dl (6.4-8.2)
[2019-02-14] MEDS ORDERED: METOCLOPRAMIDE HCL INJECTION 10 MG/2 ML VIAL IVPUSH PRN (09:56)
[2019-02-14] MEDS ORDERED: HYDROCHLOROTHIAZIDE 25 MG TABLET (FP) PO SCH (10:00)
[2019-02-14] MEDS ORDERED: amLODIPine BESYLATE 5 MG TABLET (FP) PO SCH (10:00)
[2019-02-14] MEDS ORDERED: QUINAPRIL HCL 20 MG TABLET (FP) PO SCH (10:00)
[2019-02-14] MEDS ORDERED: metoPROLOL SUCCINATE 25 MG TAB.SR.24H (FP) PO SCH (10:00)
[2019-02-14] MEDS: D5-1/2NS+20 MEQ KCL - 20 MEQ/1,000 ML INFUS.BAG IV SCH ×2 (10:48→17:54)
[2019-02-14 13:14] LABS: PLATELET COUNT 160 K/MM3 (134-434)
--- NOTE | 2019-02-14 13:26 | HOSP ---
Subjective - Review of Symptoms Subjective: pt seen at beside and noted to be nauseated and found vomiting. no relief with zofran. denies CP, SOB, fever, chills had severe nausea from anesthesia in the past. no CP or SOB doing activity around the house. had stress test done routinely several years ago and reports as negative. Current Medications Generic Name Dose Route Start Last Admin Trade Name Freq PRN Reason Stop Dose Admin Acetaminophen 1,000 mg 02/13/19 12:01 Ofirmev Injection - IVPB Q6H PRN PAIN LEVEL 1-5 Amlodipine Besylate 5 mg 02/14/19 10:00 02/14/19 09:16 Norvasc - PO 5 mg DAILY ASHOK Administration Cefazolin Sodium/Dextrose 2 gm 02/14/19 03:30 02/14/19 09:12 Ancef 2 Gm Premixed Ivpb - IVPB 2 gm Q8H-IV ASHOK Administration Potassium Chloride/Dextrose/Sod Cl 20 meq in 1,000 mls @ 125 mls/hr 02/13/19 12:16 02/14/19 10:48 D5-1/2ns+20 Meq Kcl - IV 125 mls/hr ASDIR ASHOK Administration Metronidazole 500 mg in 100 mls @ 100 mls/hr 02/14/19 03:30 02/14/19 09:12 Flagyl 500mg Premixed Ivpb - IVPB 100 mls/hr Q8H-IV ASHOK Administration Levothyroxine Sodium 125 mcg 02/14/19 07:00 02/14/19 06:05 Synthroid - PO 125 mcg AM ASHOK Administration Metoclopramide HCl 10 mg 02/14/19 09:56 02/14/19 10:05 Reglan Injection - IVPUSH 10 mg Q6H PRN Administration NAUSEA AND/OR VOMITING Metoprolol Succinate 25 mg 02/14/19 10:00 02/14/19 09:16 Toprol Xl - PO 25 mg DAILY ASHOK Administration Morphine Sulfate 2 mg 02/13/19 19:56 02/14/19 10:05 Morphine Sulfate IVPUSH 2 mg Q4H PRN Administration PAIN LEVEL 6-10 Ondansetron HCl 4 mg 02/13/19 12:15 02/14/19 08:21 Zofran Injection IVPUSH 4 mg Q4H PRN Administration NAUSEA AND/OR VOMITING Quinapril HCl 20 mg 02/14/19 10:00 02/14/19 09:13 Accupril - PO 20 mg DAILY ASHOK Administration Last Vital Signs Temp Pulse Resp BP Pulse Ox 98.0 F 71 18 145/71 95 02/14/19 08:26 02/14/19 08:26 02/14/19 08:26 02/14/19 08:26 02/13/19 21:00 General mild distress due to pain CV S1 S2 RRR no murmur/rub/gallop Lungs CTA B/l no wheezing/rales/rhonchi Abdomen +RLQ pain +rovsing sign. neg mcburney point. Assessment and Plan 73yo F wtih PMH HTN and hypothyroid presented to [facility] for abdominal pain and vomiting. On CT scan had early appendicitis and was transferred to [facility] in case emergent surgery was necessary 1. Acute appendicitis- no response to zofran. will switch to reglan and monitor for response. pt is low risk for intermediate risk procedure. NPO for lap appendectomy. IVF, Flagyl and ancef, pain and nausea control. surgery on board 2. Hyperbilirubinemia- was seen to have CBD dilation on CT. dedicated u/s ordered. this dilation could be consistent iwth hx of cholecystectomy. no signs of cholestasis. will f/u report Physical Examination Vital Signs: Vital Signs Temperature 98.0 F 02/14/19 08:26 Pulse Rate 71 02/14/19 08:26 Respiratory Rate 18 02/14/19 08:26 Blood Pressure 145/71 02/14/19 08:26 O2 Sat by Pulse Oximetry (%) 95 02/13/19 21:00 Labs: CBC, BMP 02/14/19 07:30 02/14/19 07:50
[2019-02-14] MEDS ORDERED: MIDAZOLAM HCL 2 MG/2 ML SINGLE DOSE VIAL ONE (15:06)
[2019-02-14] MEDS ORDERED: KETAMINE HCL 200 MG/20 ML VIAL ONE (15:06)
--- NOTE | 2019-02-14 15:18 | EKG ---
Test Reason : Blood Pressure : / mmHG Vent. Rate : 090 BPM Atrial Rate : 090 BPM P-R Int : 176 ms QRS Dur : 080 ms QT Int : 362 ms P-R-T Axes : 065 036 026 degrees QTc Int : 442 ms NORMAL SINUS RHYTHM POSSIBLE LEFT ATRIAL ENLARGEMENT BORDERLINE ECG WHEN COMPARED WITH ECG OF 22-AUG-2018 19:09, NO SIGNIFICANT CHANGE WAS FOUND Confirmed by ADALI DOZIER MD ([id number]) on 02/14/2019 3:18:22 PM Referred By: CLEM CONCEPCION Confirmed By:ADALI DOZIER MD
[2019-02-14] MEDS ORDERED: GLYCOPYRROLATE 0.2 MG/1 ML VIAL ONE (16:41)
[2019-02-14] MEDS ORDERED: KETOROLAC TROMETHAMINE 30 MG/1 ML VIAL ONE (16:41)
[2019-02-14] MEDS ORDERED: NEOSTIGMINE METHYLSULFATE 0.5 MG/ML - 10 ML MDV ONE (16:41)
[2019-02-14] MEDS ORDERED: BUPIVACAINE HCL/PF 0.5% (5MG/ML) 10 ML VIAL IJ ONE (16:59)
[2019-02-14] MEDS ORDERED: ceFAZolin 2 GRAM PREMIX BAG IVPB SCH (17:15)
--- NOTE | 2019-02-14 17:20 | OP ---
Operative Note - Note: Operative Date: 02/14/19 Pre-Operative Diagnosis: Right lower quadrant pain/appendicitis Operation: open appendectomy Findings: acute appendicitis Surgeon: Jasper Torres Tester Compressed Gases: Vickie Michelle Anesthesiologist/NETWORK APPLICATIONS SPECIALIST: Juan C Camejo Anesthesia: General Specimens Removed: appendix Estimated Blood Loss (mls): 20 Blood Volume Replaced (mls): 1,100 Operative Report Dictated: Yes
--- NOTE | 2019-02-14 17:21 | SURG ---
Surgery Delinquency Counselor Note Delinquency Counselor: Vickie Michelle PA-C Date of Service: 02/14/19 Diagnosis: Right lower quadrant pain/appendicitis Procedure: open appendectomy I was present for the entirety of the operative procedure. For further detail, please refer to operative report. Visit type - Case Type Case Type: ED Admission - Emergency Emergency Visit: Yes ED Registration Date: 02/13/19 Care time: The patient presented to the Emergency Department on the above date and was hospitalized for further evaluation of their emergent condition. - New patient This patient is new to me today: Yes Date on this admission: 02/14/19
[2019-02-14] MEDS ORDERED: MORPHINE SULFATE 2 MG/ML VIAL IVPUSH PRN (17:25)
[2019-02-14] MEDS ORDERED: ONDANSETRON 4 MG/2 ML VIAL IVPUSH PRN (17:25)
[2019-02-14] MEDS ORDERED: ACETAMINOPHEN INJECTION 100 ML IVPB ONE (17:42)
[2019-02-14] MEDS: ACETAMINOPHEN 1000 MG/100 ML VIAL (NON FORMULARY) IVPB SCH ×2 (17:55→23:07)
[2019-02-14] MEDS ORDERED: HEPARIN NA (PORCINE) 5,000 UNITS/ML 1ML VIAL SQ SCH (22:00)
[2019-02-15] MEDS: D5-1/2NS+20 MEQ KCL - 20 MEQ/1,000 ML INFUS.BAG IV SCH ×2 (02:30→09:47)
[2019-02-15] MEDS: ACETAMINOPHEN 1000 MG/100 ML VIAL (NON FORMULARY) IVPB SCH (05:52)
[2019-02-15] MEDS: LEVOTHYROXINE NA 125 MCG TABLET (FP) PO SCH (06:38)
[2019-02-15 07:43] LABS: BASO % 0.1 % (0-2.0); HEMATOCRIT 36.3 % (32.4-45.2); HEMOGLOBIN 12.4 GM/dL (10.7-15.3); LYMPH % 11.9 % (8-40); MCH 31.9 pg (25.7-33.7); MCHC 34.1 g/dl (32.0-36.0); MEAN CELL VOLUME 93.4 fl (80-96); MEAN PLT VOLUME 9.4 fl (7.5-11.1); MONO % 6.9 % (3.8-10.2); NEUT % 81.1 % (42.8-82.8); RBC 3.89 M/mm3 (3.60-5.2); RDW 13.9 % (11.6-15.6)
[2019-02-15] MEDS ORDERED: ACETAMINOPHEN 325 MG TABLET (FP) PO PRN (07:58)
[2019-02-15] MEDS ORDERED: PANTOPRAZOLE 20 MG TABLET (FP) PO ONE (08:04)
[2019-02-15 08:11] LABS: ALBUMIN 3.4 g/dl (3.4-5.0); BILIRUBIN,DIRECT 0.3 mg/dL (0.0-0.2); BILIRUBIN,TOTAL 1.2 mg/dL (0.2-1); BLOOD UREA NITROGEN 9.5 mg/dL (7-18); CALCIUM 8.6 mg/dL (8.5-10.1); CREATININE 0.8 mg/dL (0.55-1.3); POTASSIUM 4.1 mmol/L (3.5-5.1); TOT PROT 6.5 g/dl (6.4-8.2)
--- NOTE | 2019-02-15 08:49 | PN ---
Progress Note (short form) - Note Progress Note: 73yo F s/p open appendectomy POD 1, seen and examined at bedside. Pt states has some mild RLQ pain. Pt denies any fever, chills, n/v, diarrhea. Pt states that she does have some history of fatty liver, but no significant liver disease. Last Vital Signs Temp Pulse Resp BP Pulse Ox 98.3 F 65 18 154/74 9 L 02/15/19 02:00 02/15/19 02:00 02/15/19 02:00 02/15/19 02:00 02/14/19 21:00 CBC, BMP 02/15/19 06:30 02/15/19 06:30 PE: Gen: A&O x 3 Resp: breathing comfortably Abd: soft, nondistended, RLQ tenderness, incision is clean with no erythema or discharge. Ext: no edema Problem List - Problems (1) Appendicitis Assessment/Plan: Plan -will advance diet to clears and then as tolerated -LFTs appear to be trending down -will consider discharge tomorrow if pt continues to improve clinically. Code(s): K37 - UNSPECIFIED APPENDICITIS
[2019-02-15] MEDS: ACETAMINOPHEN 325 MG TABLET (FP) PO PRN ×2 (09:38→16:08)
[2019-02-15] MEDS: amLODIPine BESYLATE 5 MG TABLET (FP) PO SCH (09:39)
[2019-02-15] MEDS: QUINAPRIL HCL 20 MG TABLET (FP) PO SCH (09:39)
[2019-02-15] MEDS: metoPROLOL SUCCINATE 25 MG TAB.SR.24H (FP) PO SCH (09:39)
[2019-02-15 12:52] LABS: PLATELET COUNT 102 K/MM3 (134-434)
--- NOTE | 2019-02-15 13:42 | PN ---
Teaching Attending Note Name of Resident: Crista Mendez ATTENDING PHYSICIAN STATEMENT I saw and evaluated the patient. I reviewed the resident's note and discussed the case with the resident. I agree with the resident's findings and plan as documented. SUBJECTIVE: Mild RLQ tenderness. No nausea/vomiting. Tolerating clears. No fever. Passing flatus. OBJECTIVE: Afebrile, Hemodynamically Stable. Last Vital Signs Temp Pulse Resp BP Pulse Ox 98.3 F 60 18 163/76 100 02/15/19 10:02/15/19 10:02/15/19 10:02/15/19 10:02/15/19 09:00 HEENT - Atraumatic, Normocephalic. Heart - S1, S2, RRR Lungs - clear to auscultation Abdomen - RLQ surgical site dressed, mild tenderness. Soft. Bowel Sounds normal. Extremities - no edema, no calf tenderness. Laboratory Results - last 24 hr 02/15/19 02/15/19 06:30 06:30 WBC 6.0 RBC 3.89 Hgb 12.4 Hct 36.3 MCV 93.4 MCH 31.9 MCHC 34.1 RDW 13.9 Plt Count 102 L D MPV 9.4 Absolute Neuts (auto) 4.9 Neutrophils % 81.1 Lymphocytes % 11.9 Monocytes % 6.9 Eosinophils % 0.0 D Basophils % 0.1 Nucleated RBC % 0 Platelet Comment No clumping noted Sodium 138 Potassium 4.1 Chloride 104 Carbon Dioxide 28 Anion Gap 6 L BUN 9.5 Creatinine 0.8 Est GFR (CKD-EPI)AfAm 84.18 Est GFR (CKD-EPI)NonAf 72.63 Random Glucose 147 H Calcium 8.6 Total Bilirubin 1.2 H Direct Bilirubin 0.3 H AST 22 ALT 48 Alkaline Phosphatase 118 H Total Protein 6.5 Albumin 3.4 Current Medications Generic Name Dose Route Start Last Admin Trade Name Freq PRN Reason Stop Dose Admin Acetaminophen 650 mg 02/15/19 08:33 02/15/19 09:38 Tylenol - PO 650 mg Q4H PRN Administration HEADACHE Amlodipine Besylate 5 mg 02/15/19 10:00 02/15/19 09:39 Norvasc - PO 5 mg DAILY ASHOK Administration Heparin Sodium (Porcine) 5,000 unit 02/15/19 14:00 Heparin - SQ TID ASHOK Potassium Chloride/Dextrose/Sod Cl 20 meq in 1,000 mls @ 125 mls/hr 02/14/19 17:25 02/15/19 09:47 D5-1/2ns+20 Meq Kcl - IV 125 mls/hr ASDIR ASHOK Administration Levothyroxine Sodium 125 mcg 02/15/19 07:00 02/15/19 06:38 Synthroid - PO 125 mcg AM ASHOK Administration Metoclopramide HCl 10 mg 02/14/19 17:25 Reglan Injection - IVPUSH Q6H PRN NAUSEA AND/OR VOMITING Metoprolol Succinate 25 mg 02/15/19 10:00 02/15/19 09:39 Toprol Xl - PO 25 mg DAILY ASHOK Administration Morphine Sulfate 4 mg 02/14/19 17:25 Morphine Sulfate IVPUSH Q4H PRN PAIN LEVEL 6-10 Ondansetron HCl 4 mg 02/14/19 17:25 Zofran Injection IVPUSH Q4H PRN NAUSEA AND/OR VOMITING Oxycodone HCl 5 mg 02/14/19 20:52 Roxicodone - PO Q6H PRN PAIN LEVEL 1-5 Quinapril HCl 20 mg 02/15/19 10:00 02/15/19 09:39 Accupril - PO 20 mg DAILY ASHOK Administration ASSESSMENT AND PLAN: 73 year old female with history of HTN, Hypothyroidism presented to [facility] for abdominal pain and vomiting, currently POD 1 s/p Acute Appendicitis. 1. Acute Appendicitis - POD 1 s/p Appendectomy. Tolerating diet advancement, passing flatus. Post-surgical wound management and merary-operative pain management as per Surgery. 2. CBD Dilatation - CBD 1.4cm on Abdominal US. Hx of Cholecystectomy. No signs of cholangitis. Will request GI eval prior to discharge. 3. HTN - Continue Quinapril, Toprol XL, Norvasc. 4. Hypothyroidism - Continue Levothyroxine. DVT Px - Heparin SQ
[2019-02-15] MEDS: HEPARIN NA (PORCINE) 5,000 UNITS/ML 1ML VIAL SQ SCH ×2 (14:01→21:33)
--- NOTE | 2019-02-15 14:53 | PN ---
Progress Note (short form) - Note Progress Note: Attending Surgeon POD#1 Some nausea as diet was advanced; no vomiting; no pain VSS AF abdo-soft; flat and non tender except over incision. WBC-nl LFT's-decreasing IMP: improved PLAN: Monitor for diet toleration;anticipate d/c 02/16/19. Jasper Torres MD FACS
--- NOTE | 2019-02-15 15:23 | CON.GI ---
Consult Consult Specialty:: GI Referred by:: Hospitalist service Reason for Consultation:: Dilated common bile duct - History of Present Illness Chief Complaint: Lower right sided abdominal pain History of Present Illness: 73F transferred from [place] for further evaluation of RLQ pain / suspected appendicits. She had a CT scan of the abdomen on admission that revealed a dilated CBD. Her bile duct has been dilated on prior imaging and she is S/P cholecystectomy since 2003. Follow-up ABD US revealed a 1.4 cm CBD. She currently describes pain at her right lower abdominal surgical site. She has a history of chronic diarrhea ahd has been followed by multiple gastroenterologists. her current orthopedically impaired teacher is Dr. Jd Long who works out of [employer]. She says that he just performed colonoscopy on her 11/16, which led to the removal of colon polyps endoclip placements. There is no family history of colorectal cancer or other GI malignancy. he bilirubin noted mildly elevated as well as ALP. In review of the [employer] system her bilirubin has been elevated from at least 2011. It appears as though she has had thrombocytopenia chronically to varying degrees as well - History Source History Provided By: Patient Limitations to Obtaining History: No Limitations - Past Medical History Cardio/Vascular: Yes: HTN Gastrointestinal: Yes: Diverticulitis, Diverticulosis Hepatobiliary: Yes: Other (Fatty Liver) ...: No Endocrine: Yes: Hypothyroidism - Past Surgical History Past Surgical History: Yes: Cholecystectomy (Laparoscopic (2003)), Colectomy ( left sided colon resection secondary to diverticulitis), Hernia Repair (left sided abdominal wall hernia repair with revision) - Alcohol/Substance Use Hx Alcohol Use: No History of Substance Use: reports: None, Cocaine - Smoking History Smoking history: Never smoked Have you smoked in the past 12 months: No - Social History Usual Living Arrangement: With Spouse ADL: Independent Place of : [facility] History of Recent Travel: No Home Medications - Allergies Allergies/Adverse Reactions: Allergies Allergy/AdvReac Type Severity Reaction Status Date / Time No Known Allergies Allergy Verified 08/22/18 10:52 - Home Medications Home Medications: Ambulatory Orders Aspirin [Aspir 81] 81 mg PO DAILY 06/13/13 Loperamide HCl/Simethicone [Imodium Multi-Symptom Rel Cplt] 1 each PO ASDIR tablet 10/29/16 Hydrochlorothiazide [Hctz -] 25 mg PO DAILY 08/22/18 Levothyroxine [Synthroid -] 125 mcg PO DAILY 08/22/18 Metoprolol Succinate 25 mg PO DAILY 08/22/18 Quinapril HCl 20 mg PO DAILY 08/22/18 Amlodipine Besylate 5 mg PO DAILY 02/13/19 Colestipol HCl 1 gm PO DAILY 02/13/19 Family Disease History - Family Disease History Family Disease History: Other: Father (: 54: unclear causes), Mother (: 76: ? complications from intestinal surgery), Brother (1, healthy), Sister (1, healthy) Other Family History: No family history of colorectal cancer or other GI malignancy Review of Systems - Review of Systems Constitutional: denies: Unintentional Wgt. Loss Cardiovascular: denies: Chest Pain Respiratory: denies: Cough, SOB Gastrointestinal: reports: Abdominal Pain, Diarrhea (Chronic) Physical Exam-GI Vital Signs: Vital Signs Temperature 98.3 F 02/15/19 10:00 Pulse Rate 60 02/15/19 10:00 Respiratory Rate 18 02/15/19 10:00 Blood Pressure 163/76 02/15/19 10:00 O2 Sat by Pulse Oximetry (%) 100 02/15/19 09:00 Constitutional: Yes: Calm Eyes: No: Sclera Icterus Cardiovascular: Yes: Regular Rate and Rhythm. No: Murmur Respiratory: Yes: CTA Bilaterally Gastrointestinal Inspection: Yes: Scars (long horizontal surgical scar along left lower abdomen, + healed trochar scars in the upper abdomen, + RLQ dressing in place) ...Auscultate: Yes: Normoactive Bowel Sounds ...Palpate: Yes: Soft, Tenderness (Mild TTP RLQ. No RUQ TTP.). No: Hepatomegaly , Splenomegaly ...Percussion: No: Tympanitic Edema: Yes Edema: LLE: 1+, RLE: 1+ Neurological: Yes: Alert Labs: CBC, BMP 02/15/19 06:30 02/15/19 06:30 INR, PTT INR 1.01 (0.83-1.09) 02/13/19 06:05 Hepatic Panel Total Bilirubin 1.2 mg/dL (0.2-1) H 02/15/19 06:30 Direct Bilirubin 0.3 mg/dL (0.0-0.2) H 02/15/19 06:30 AST 22 U/L (15-37) 02/15/19 06:30 ALT 48 U/L (13-61) 02/15/19 06:30 Alkaline Phosphatase 118 U/L (45-117) H 02/15/19 06:30 Albumin 3.4 g/dl (3.4-5.0) 02/15/19 06:30 Imaging - Results Cat Scan: Report Reviewed, Image Reviewed Ultrasound: Report Reviewed Problem List - Problems (1) Common bile duct dilatation Assessment/Plan: Asymptomatic: Suspect physiologic in nature, however 1.4cm is more prominent than expected s/p cholecystectomy. Bilirubin seems to have been chronically elevated as well. MRCP ordered. is getting endoclip card from home Monitor LFTs. Check direct bilirubin: Hepatic panel ordered for AM. Check screening hepatitis A/B/C serologies. Given h/o fatty liver, ? component of chronic liver disease. Will need outpatient follow-up with her orthopedically impaired teacher Dr. Jd Long pending results of her MRCP, regarding her chronic diarrhea and dilated biliary tract. MRCP results should be forwarded to his office as well. Code(s): K83.8 - OTHER SPECIFIED DISEASES OF BILIARY TRACT
--- NOTE | 2019-02-15 15:30 | PN ---
Physical Exam: SUBJECTIVE: Patient seen this morning and able to tolerate soft diet. OBJECTIVE: Vital Signs Temperature 98.3 F 02/15/19 10:00 Pulse Rate 60 02/15/19 10:00 Respiratory Rate 18 02/15/19 10:00 Blood Pressure 163/76 02/15/19 10:00 O2 Sat by Pulse Oximetry (%) 100 02/15/19 09:00 GENERAL: The patient is awake, alert, and fully oriented, in no acute distress. HEAD: Normal with no signs of trauma. LUNGS: Breath sounds equal, clear to auscultation bilaterally, no wheezes, no crackles, no accessory muscle use. HEART: Regular rate and rhythm, S1, S2 without murmur, rub or gallop. ABDOMEN: dressing over right lower quadrant EXTREMITIES: 2+ pulses, warm, well-perfused, no edema. SKIN: Warm, dry, normal turgor, no rashes or lesions noted CBC, BMP 02/15/19 06:30 02/15/19 06:30 Active Medications Acetaminophen (Tylenol -) 650 mg PO Q4H PRN PRN Reason: HEADACHE Last Admin: 02/15/19 09:38 Dose: 650 mg Amlodipine Besylate (Norvasc -) 5 mg PO DAILY [facility] Last Admin: 02/15/19 09:39 Dose: 5 mg Heparin Sodium (Porcine) (Heparin -) 5,000 unit SQ TID [facility] Last Admin: 02/15/19 14:01 Dose: 5,000 unit Potassium Chloride/Dextrose/Sod Cl (D5-1/2ns+20 Meq Kcl -) 20 meq in 1,000 mls @ 125 mls/hr IV ASDIR [facility] Last Admin: 02/15/19 09:47 Dose: 125 mls/hr Levothyroxine Sodium (Synthroid -) 125 mcg PO AM [facility] Last Admin: 02/15/19 06:38 Dose: 125 mcg Metoclopramide HCl (Reglan Injection -) 10 mg IVPUSH Q6H PRN PRN Reason: NAUSEA AND/OR VOMITING Metoprolol Succinate (Toprol Xl -) 25 mg PO DAILY [facility] Last Admin: 02/15/19 09:39 Dose: 25 mg Morphine Sulfate (Morphine Sulfate) 4 mg IVPUSH Q4H PRN PRN Reason: PAIN LEVEL 6-10 Oxycodone HCl (Roxicodone -) 5 mg PO Q6H PRN PRN Reason: PAIN LEVEL 1-5 Quinapril HCl (Accupril -) 20 mg PO DAILY [facility] Last Admin: 02/15/19 09:39 Dose: 20 mg ASSESSMENT/PLAN: Patient is a 73 y/o female with a history of HTN, hypothyroidism, NAFLD, diverticulitis, who is s/p appendectomy. #POD1 appendectomy - patient tolerating soft diet - tylenol for pain - following by Dr. Melissa wheeler and reglan for nausea - morphine and oxy for pain #CBD 1.4 - discussed with GI, patient to have MRCP tomorrow - seen on US, last imaging 1.1 - LFT's returned to normal , f/u hepatitis panel - t. bili trending down - patient to need outpatient f/u with converting operator #HTN -continue amlodpine, quinapril, and metoprolol #Hypothyroidism - continue levothyroxine #DVT ppx - heparin BID Dispo: f/u MRCP results tomorrow, NPO after midnight Visit type - Emergency Visit Emergency Visit: No - New Patient This patient is new to me today: No - Critical Care Critical Care patient: No - Discharge Referral Referred to [facility] No
[2019-02-15] MEDS: METOCLOPRAMIDE HCL INJECTION 10 MG/2 ML VIAL IVPUSH PRN (17:37)
[2019-02-15] MEDS: oxyCODONE HCL 5 MG TABLET PO PRN (21:34)
[2019-02-16] MEDS: ACETAMINOPHEN 325 MG TABLET (FP) PO PRN ×2 (03:10→11:55)
[2019-02-16] MEDS: METOCLOPRAMIDE HCL INJECTION 10 MG/2 ML VIAL IVPUSH PRN (03:11)
[2019-02-16] MEDS: LEVOTHYROXINE NA 125 MCG TABLET (FP) PO SCH (06:20)
[2019-02-16] MEDS: HEPARIN NA (PORCINE) 5,000 UNITS/ML 1ML VIAL SQ SCH ×2 (06:20→14:41)
[2019-02-16 08:06] LABS: HEMATOCRIT 39.2 % (32.4-45.2); HEMOGLOBIN 13.6 GM/dL (10.7-15.3); MCH 32.2 pg (25.7-33.7); MCHC 34.6 g/dl (32.0-36.0); MEAN CELL VOLUME 92.9 fl (80-96); MEAN PLT VOLUME 8.8 fl (7.5-11.1); PLATELET COUNT 130 K/MM3 (134-434); RBC 4.22 M/mm3 (3.60-5.2); RDW 13.9 % (11.6-15.6); WHITE BLOOD COUNT 6.1 K/mm3 (4.0-10.0)
[2019-02-16 08:38] LABS: ALBUMIN 3.7 g/dl (3.4-5.0); BILIRUBIN,DIRECT 0.2 mg/dL (0.0-0.2); BILIRUBIN,TOTAL 0.7 mg/dL (0.2-1); BLOOD UREA NITROGEN 12.1 mg/dL (7-18); CALCIUM 9.1 mg/dL (8.5-10.1); CREATININE 0.9 mg/dL (0.55-1.3); POTASSIUM 4.1 mmol/L (3.5-5.1); TOT PROT 8.4 g/dl (6.4-8.2)
--- NOTE | 2019-02-16 08:59 | PN ---
Progress Note (short form) - Note Progress Note: 73yo F s/p open appendectomy. Pt seen and examined at bedside. Pt states that she is feeling much better today. Denies n/v, fever, chills. Pt tolerating PO and ambulating well. Pt states that she was seen by Dr. Andrwes of GI yesterday who spoke to her about getting an MRI yesterday, but states that she really didn't understand what he was talking about. Pt states that she really does not want an MRI and feels alot better and wants to go home. Last Vital Signs Temp Pulse Resp BP Pulse Ox 98.7 F 63 21 H 150/73 100 02/16/19 06:56 02/16/19 06:56 02/16/19 06:56 02/16/19 06:56 02/15/19 09:00 CBC, BMP 02/16/19 07:30 PE: Gen: A&O X3 REsp: breathing comfortably Abd: soft, nondistended, mild RLQ incional pain, no epigastric or RUQ tenderness. Problem List - Problems (1) Appendicitis Assessment/Plan: Plan -pt is cleared from surgical standpoint for discharge, LFTs are improving and clinically pt has not symptoms -will follow up LFTs today -pt is a reliable pt and has her own GI doctor, I believe it is reasonable for pt to have an outpatient workup if possible -pt should follow up with Dr. Torres as an outpatient in 1-2 weeks Case discussed with Dr. Torres who agrees with plan. Code(s): K37 - UNSPECIFIED APPENDICITIS
[2019-02-16] MEDS: amLODIPine BESYLATE 5 MG TABLET (FP) PO SCH (09:34)
[2019-02-16] MEDS: QUINAPRIL HCL 20 MG TABLET (FP) PO SCH (09:34)
[2019-02-16] MEDS: metoPROLOL SUCCINATE 25 MG TAB.SR.24H (FP) PO SCH (09:35)
--- NOTE | 2019-02-16 10:54 | PN.GI ---
GI Progress Note Subjective: Pt seen/examine at bedside, feels well, anxious to go home. Denies abdominal pain, n/v, fever/chills. Tolerated diet yesterday. - Objective Vital Signs: Vital Signs Temperature 98.7 F 02/16/19 06:56 Pulse Rate 63 02/16/19 06:56 Respiratory Rate 21 H 02/16/19 06:56 Blood Pressure 150/73 02/16/19 06:56 O2 Sat by Pulse Oximetry (%) 100 02/15/19 09:00 Constitutional: No Distress, Calm Cardiovascular: Yes: WNL, Regular Rate and Rhythm Respiratory: Yes: WNL, Regular, CTA Bilaterally ...Palpate: Yes: Other (Abd soft, nt, nd) Labs: CBC, BMP 02/16/19 07:30 02/16/19 07:30 INR, PTT INR 1.01 (0.83-1.09) 02/13/19 06:05 Problem List - Problems (1) Common bile duct dilatation Assessment/Plan: 73yo female h/o cholecystectomy presenting with RLQ pain s/p open appendectomy pod #2, with dilated bile duct. US revealing 1.4cm CBD dilation, no obvious stones or filling defects. Pt doing well. LFTs normal today. -MRCP scheduled this am r/o subtle lesion or obstructive process as dilation is more than would be expected post cholecystectomy -Continue to monitor LFT trend -Follow up hepatitis serologies -Pending MRI results, pt should resume follow up with outpatient bricklayer sewer, Dr. Long Code(s): K83.8 - OTHER SPECIFIED DISEASES OF BILIARY TRACT
--- NOTE | 2019-02-16 11:55 | OP ---
DATE OF OPERATION: 02/14/2019 PREOPERATIVE DIAGNOSIS: Acute appendicitis. POSTOPERATIVE DIAGNOSIS: Acute appendicitis. PROCEDURE: Open appendectomy. SURGEON: Jasper Torres MD TRAVEL ACCOMMODATIONS RATER: Vickie Michelle PA-C ANESTHESIA: General. OPERATIVE FINDINGS: Possible early acute versus chronic appendicitis. There was some non-cloudy peritoneal fluid. The rest of the findings were unremarkable. PROCEDURE: Patient was placed on the operating room table in the supine position and after the induction of general anesthesia and prior to prepping the patient's abdomen was examined under anesthesia and it was felt that, due to the presence of an extensive mesh from previous incisional hernia repair, safe laparoscopic access to the abdomen would not be able to be obtained. We decided on open appendectomy. The abdomen was then prepped with ChloraPrep and draped in sterile fashion. A timeout was taken and then a transverse skin incision mapped out over McBurney point. Incision was made with a scalpel and taken down through skin and subcutaneous tissue to the external oblique fascia which was divided in the direction of its fibers. The internal oblique fascia was scored and then muscle splitting was carried out using Lesly clamps until the peritoneum was visualized. The peritoneum was opened in a transverse fashion and the previously noted findings were observed. Cultures were taken of the peritoneal fluid present. The cecum was then mobilized into the wound and as the appendix was folded back on itself in almost a retrocecal fashion we proceeded to divided the appendix at its base between right-angle clamps. The appendiceal stump was doubly ligated with 2-0 Vicryl suture. Next the mesoappendix was serially clamped and divided and ligated with 3-0 Vicryl suture. Once the appendix was freed from the mesentery it was passed off the operative field and sent for pathological examination. The stump of the appendix was cauterized with the electrocautery. Next the cecum was returned to its normal anatomic position in the right lower quadrant and then the incision closed in layers using continuous 0 Vicryl for the peritoneum and posterior sheath, interrupted 0 Vicryl to reapproximate the internal oblique muscle and continuous 0 Vicryl to reapproximate the external oblique fascia. Vicryl 2-0 was used to reapproximate Stewart fascia and then interrupted 3-0 Vicryl for the deep dermis and surgical christian to reapproximate the skin edges. Dry sterile dressings were placed and the procedure terminated at this point and the patient aroused from general anesthesia and transferred to the postanesthesia care unit in stable condition awake and alert. ESTIMATED BLOOD LOSS: 20 mL. REPLACEMENT: Crystalloid. DRAINS: None. SPECIMENS: Appendix and cultures. I, Jasper Torres, was physically present in the operating room from the time the patient was placed on the operating room table until she was transferred to the postanesthesia care unit in my accompaniment. MD CIARRA Patel/[id number] MTDD
[2019-02-16] MEDS: oxyCODONE HCL 5 MG TABLET PO PRN (12:02)
[2019-02-16 14:18] VITALS: BP 146/64; PULSE 60; TEMP 98.5
--- NOTE | 2019-02-16 15:49 | PN ---
Teaching Attending Note Name of Resident: Crista Mendez ATTENDING PHYSICIAN STATEMENT I saw and evaluated the patient. I reviewed the resident's note and discussed the case with the resident. I agree with the resident's findings and plan as documented. SUBJECTIVE: No nausea/vomiting. Tolerating soft diet. No fever. Passing flatus. OBJECTIVE: Afebrile, Hemodynamically Stable. Last Vital Signs Temp Pulse Resp BP Pulse Ox 98.5 F 60 19 146/64 99 02/16/19 14:16 02/16/19 14:16 02/16/19 14:16 02/16/19 14:16 02/16/19 09:00 Heart - S1, S2, RRR Lungs - clear to auscultation Abdomen - Surgical site dressed, mild tenderness. Soft. Bowel Sounds normal. Extremities - no edema, no calf tenderness. Laboratory Results - last 24 hr 02/16/19 02/16/19 07:30 07:30 WBC 6.1 RBC 4.22 Hgb 13.6 Hct 39.2 MCV 92.9 MCH 32.2 MCHC 34.6 RDW 13.9 Plt Count 130 L D MPV 8.8 Sodium 142 Potassium 4.1 Chloride 112 H Carbon Dioxide 25 Anion Gap 6 L BUN 12.1 Creatinine 0.9 Est GFR (CKD-EPI)AfAm 73.00 Est GFR (CKD-EPI)NonAf 62.99 Random Glucose 94 Calcium 9.1 Total Bilirubin 0.7 Direct Bilirubin 0.2 AST 24 ALT 27 Alkaline Phosphatase 88 Total Protein 8.4 H Albumin 3.7 Current Medications Generic Name Dose Route Start Last Admin Trade Name Freq PRN Reason Stop Dose Admin Acetaminophen 650 mg 02/15/19 08:33 02/16/19 11:55 Tylenol - PO 650 mg Q4H PRN Administration HEADACHE Amlodipine Besylate 5 mg 02/15/19 10:00 02/16/19 09:34 Norvasc - PO 5 mg DAILY [facility] Administration Heparin Sodium (Porcine) 5,000 unit 02/15/19 14:00 02/16/19 14:41 Heparin - SQ 5,000 unit TID [facility] Administration Levothyroxine Sodium 125 mcg 02/15/19 07:00 02/16/19 06:20 Synthroid - PO 125 mcg AM [facility] Administration Metoclopramide HCl 10 mg 02/14/19 17:25 02/16/19 03:11 Reglan Injection - IVPUSH 10 mg Q6H PRN Administration NAUSEA AND/OR VOMITING Metoprolol Succinate 25 mg 02/15/19 10:00 02/16/19 09:35 Toprol Xl - PO 25 mg DAILY [facility] Administration Morphine Sulfate 4 mg 02/14/19 17:25 Morphine Sulfate IVPUSH Q4H PRN PAIN LEVEL 6-10 Oxycodone HCl 5 mg 02/14/19 20:52 02/16/19 12:02 Roxicodone - PO 5 mg Q6H PRN Administration PAIN LEVEL 1-5 Quinapril HCl 20 mg 02/15/19 10:00 02/16/19 09:34 Accupril - PO 20 mg DAILY [facility] Administration ASSESSMENT AND PLAN: 73 year old female with history of HTN, Hypothyroidism, presented to [facility] for abdominal pain and vomiting, currently POD 2 s/p Acute Appendicitis. 1. Acute Appendicitis - POD 2 s/p Appendectomy. Tolerating diet advancement, passing flatus. Post-surgical wound management and merary-operative pain management as per Surgery. 2. CBD Dilatation - CBD 1.4cm on Abdominal US. Hx of Cholecystectomy. No signs of cholangitis. GI evaluated and requested MRCP - which shows dilated CBD with distal narrowing (bird beak appearance), non-specific findings. Awaiting GI review of MRCP for discharge clearance. 3. R Hepatic Lobe ill defined density ? mass - needs out-patient follow up for AFP and further imaging. Patient to follow with her own Vice President Of Consulting Services. 4. HTN - Continue Quinapril, Toprol XL, Norvasc. 5. Hypothyroidism - Continue Levothyroxine. DVT Px - Heparin SQ
--- NOTE | 2019-02-16 16:05 | DS ---
Physical Exam: SUBJECTIVE: Patient seen this morning and no complaints. NPO for MRCP. OBJECTIVE: Vital Signs Vital Signs Temperature 98.5 F 02/16/19 14:16 Pulse Rate 60 02/16/19 14:16 Respiratory Rate 02/16/19 14:16 Blood Pressure 146/64 02/16/19 14:16 O2 Sat by Pulse Oximetry (%) 99 02/16/19 09:00 PHYSICAL EXAM GENERAL: The patient is awake, alert, and fully oriented, in no acute distress. HEAD: Normal with no signs of trauma. LUNGS: Breath sounds equal, clear to auscultation bilaterally, no wheezes, no crackles, no accessory muscle use. HEART: Regular rate and rhythm, S1, S2 without murmur, rub or gallop. ABDOMEN: dressing over right lower quadrant EXTREMITIES: 2+ pulses, warm, well-perfused, no edema. SKIN: Warm, dry, normal turgor, no rashes or lesions noted LABS Laboratory Results - last 24 hr 02/16/19 02/16/19 07:30 07:30 WBC 6.1 RBC 4.22 Hgb 13.6 Hct 39.2 MCV 92.9 MCH 32.2 MCHC 34.6 RDW 13.9 Plt Count 130 L D MPV 8.8 Sodium 142 Potassium 4.1 Chloride 112 H Carbon Dioxide 25 Anion Gap 6 L BUN 12.1 Creatinine 0.9 Est GFR (CKD-EPI)AfAm 73.00 Est GFR (CKD-EPI)NonAf 62.99 Random Glucose 94 Calcium 9.1 Total Bilirubin 0.7 Direct Bilirubin 0.2 AST 24 ALT 27 Alkaline Phosphatase 88 Total Protein 8.4 H Albumin 3.7 HOSPITAL COURSE: Date of Admission:02/13/19 Patient is a 73 y/o female with a history of HTN, hypothyroidism, NAFLD, diverticulitis, who was admitted for appendicitis. Patient underwent appendectomy and tolerated procedure. Patient was able to pass gas and tolerate diet. On US patient was found to have a dilated common bile duct. GI saw patient and requested MRCP. MRCP showed hyperdensity of liver and CHD dilation. Discussed with patient need to follow up as an out patient with GI. Patient agreeable ot make appointment with GI. Patients LFT's and T bili tredned to normal and symptoms resolved s/p surgery. Patient vitals stable and discharged home. ABD/pelvis CT: mild hepatosplenomegaly, s/p cholycystectomy dilitation of biliary tree, slightly thickened appendix CXR: no acute pathology US: s/p cholecystectomy, mildly increased common bile duct dilitation with diameter of 1.4, no calculus MRCP: dilated CHD 1.2, minimally dilated CBD 8 with narrowed distal CBD bird's beak apperance coupled with mild intraheaptic biliary ductal dilitation. 1.9 cm focus of ill defined right hepatic lobe hyperdensity with restricted diffusion blood cx and urine cs: negative for growth Date of Discharge: 02/16/19 Minutes to complete discharge: 40 Discharge Summary Reason For Visit: ABDOMINAL PAIN Current Active Problems Common bile duct dilatation (Acute) Condition: Stable - Instructions Diet, Activity, Other Instructions: Dear MAMIE CONWAY, Post Operative Instructions Physical activity Resume your normal everyday activity as tolerated no heavy lifting or exercise until seen by your surgeon. You may walk unlimited amounts of and climb stairs. You may resume driving the car when you feel safe and comfortable behind the wheel. Wound care Keep your incision clean and dry. Sponge bath only, no showers or baths. Diet There are no dietary restrictions. Eat healthy, high-fiber foods. Drink 6 to 8 glasses of liquid each day. This will assist in keeping your bowels are regular. Pain management You may take Tylenol or acetaminophen or Ibuprofen (for example, Motrin, Advil etc.) Any pain prescription medication ordered should be taken as prescribed for moderate to severe pain. Call Dr. Torres for any of the following: Severe pain not relieved by medication Fever of 101 or higher Excessive bleeding or drainage on dressing Inability to urinate Call the office at [phone] for a post operative appointment in 7 - 10 days. Please resume your home medications as prescribed. Please also make an appointment to follow up with your Primary Care Physician within one week. While you were here we had imaging of your abdomen. It shows there is a slight dilatation in one of the bile ducts from your liver. It also shows a density, which could be a mass, cyst, or your normal anatomy in your liver. These are not things that you will need to stay in the hospital for, but it is very important you follow up with your GI doctor. We have provided a referral for this doctor. At this time you may also need repeat imaging. Please be sure to discuss this with your GI doctor and your Primary Care Physician Referrals: Jasper Torres MD [Staff Physician] - Jd Long [Non Staff, Medical] - (fax number: [phone]) Disposition: HOME - Home Medications Comprehensive Discharge Medication List: Ambulatory Orders Aspirin [Aspir 81] 81 mg PO DAILY 06/13/13 Loperamide HCl/Simethicone [Imodium Multi-Symptom Rel Cplt] 1 each PO ASDIR tablet 10/29/16 Hydrochlorothiazide [Hctz -] 25 mg PO DAILY 08/22/18 Levothyroxine [Synthroid -] 125 mcg PO DAILY 08/22/18 Metoprolol Succinate 25 mg PO DAILY 08/22/18 Quinapril HCl 20 mg PO DAILY 08/22/18 Amlodipine Besylate 5 mg PO DAILY 02/13/19 Colestipol HCl 1 gm PO DAILY 02/13/19 This patient is new to me today: No Emergency Visit: No Critical Care patient: No - Discharge Referral Referred to [facility] No
[2019-02-18 22:09] LABS: HEP B CORE AB, TOT Negative (Negative)
--- NOTE | 2019-02-21 17:20 | PATH ---
Surgical Pathology Report Patient Name: MAMIE CONWAY [facility]. Rec. #: [id number] /Age/Gender: 1945 (Age: 73) / F Account: [id number] Location: [address] [place] [address] Taken: 02/14/2019 Received: 02/15/2019 Reported: 02/21/2019 Physicians: MD Clementine Banks M.D. 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 NEOPLASM MEASURES 0.9 CM IN GREATEST DIMENSION, PRESENT AT DISTAL HALF OF APPENDIX. NO LYMPHOVASCULAR INVASION OR PERINEURAL INVASION IDENTIFIED. SURGICAL MARGINS ARE NEGATIVE. PATHOLOGIC STAGE (pTMN): pTis pNx. SEE CASE SUMMARY BELOW. Intradepartmental case reviewed with concordance on diagnosis. This case was discussed with Dr. Sahu on February 21, 2019. Comments Surgical Pathology Cancer Case Summary AJCC pTNM Staging, 8th Edition APPENDIX Procedure _X_ Appendectomy Tumor Site _X_ Distal half of appendix Tumor Size Greatest dimension (centimeters): 0.9 cm Additional dimension: 0.4 x 0.4cm Histologic Type _X_ Low-grade appendiceal mucinous neoplasm Tumor Extension _X_ Tumor invades submucosa Margins Proximal Margin _X_ Uninvolved by appendiceal mucinous neoplasm Mesenteric Margin _X_ Uninvolved by appendiceal mucinous neoplasm Lymphovascular Invasion _X_ Not identified Tumor Deposits _X_ Not identified Perineural Invasion _X_ Not identified Regional Lymph Nodes _X_ No lymph nodes submitted or found Pathologic Stage Classification (pTNM, AJCC 8th Edition) Primary Tumor (pT) _X_ pTis(LAMN): Low-grade appendiceal mucinous neoplasm confined by the muscularis propria. Acellular mucin or mucinous epithelium may invade into the muscularis propria. T1 and T2 are not applicable to LAMN. Acellular mucin or mucinous epithelium that extends into the subserosa or serosa should be classified as T3 or T4a, respectively. Regional Lymph Nodes (pN) _X_ pNX: Regional lymph nodes cannot be assessed Electronically Signed Roberta Carmona M.D. Gross Description Received in formalin, labeled "appendix," is a 4.5 cm. in length vermiform appendix with a clamped margin of resection and moderate attached fat. The serosa is carney-saleh and smooth. Sectioning shows a focally hemorrhagic lumen dilatation with a mildly dilated portion which measures 0.9 x 0.4 cm, 2 cm from the stapled surgical margin. The wall of the appendix averages 0.1 cm. in thickness. Entire specimen is submitted in 5 cassettes as follows: 1- initial sections, 2-4- remainder of the appendix, 5- shaved surgical margin. 02/15/2019 [facility]2019
== END 2019-02-16 17:52 | disposition home or self-care (01) | DRG 343 ==
LOC: FER 05:35 → J6S 15:36
PROVIDERS: ADMIT Internal Medicine
PROC: 0DTJ0ZZ Resection of Appendix, Open Approach (ICD-10-PCS; principal; 2019-02-14 14:00)
DX: K35.890 Other acute appendicitis without perforation or gangrene (principal); E03.9 Hypothyroidism, unspecified; I10 Essential (primary) hypertension; R11.2 Nausea with vomiting, unspecified; D69.6 Thrombocytopenia, unspecified; E80.6 Other disorders of bilirubin metabolism; K82.9 Disease of gallbladder, unspecified; K76.0 Fatty (change of) liver, not elsewhere classified
CPT/HCPCS: 36415; 71045-TC-FY; 74177-TC; 74181-TC; 76705-TC; 80048; 80053; 80076; 81003; 82248; 83735; 84100; 85025; 85027; 85610; 86704; 86706; 86803; 86850; 86900; 86901; 87040; 87070; 87075; 87086; 87205; 88304-TC; 93005; 94760; 99284-25; J0131; J1644; J7030